=== PATIENT | female | born 1955 | race Hispanic/Latino ===

== ENCOUNTER → 2017-06-21 | Day surgery (SDC) | payer BC ==
[2017-06-20 13:05] LABS: BASOPHILS # (AUTO) 0.1 (0.0-0.1); BASOPHILS % 0.6 % (0.0-1.0); EOSINOPHILS # (AUTO) 0.1 (0.0-0.4); HEMATOCRIT 39.8 % (34.2-44.1); HEMOGLOBIN 13.5 g/dL (12.0-16.0); LYMPHOCYTES # (AUTO) 2.1 (1.0-3.2); LYMPHOCYTES % 22.1 % (18.0-39.1); MEAN CORPUSCULAR HEMOGLOBIN 31.2 pg (28-32); MEAN CORPUSCULAR HGB CONC 33.9 g/dL (31-35); MEAN CORPUSCULAR VOLUME 91.9 fL (81-99); MONOCYTES # (AUTO) 0.8 (0.2-0.8); MONOCYTES % 8.4 % (4.4-11.3); NEUTROPHILS # (AUTO) 6.4 (2.1-6.9); NEUTROPHILS % 67.3 % (38.7-80.0); PLATELET COUNT 300 x10e3/uL (140-360); RED BLOOD COUNT 4.33 x10e6/uL (3.6-5.1); RED CELL DISTRIBUTION WIDTH 12.6 % (11.7-14.4)
[2017-06-20 13:24] LABS: ALANINE AMINOTRANSFERASE 42 IU/L (0-55); ALBUMIN 3.5 g/dL (3.5-5.0); ALBUMIN/GLOBULIN RATIO 0.8 (0.8-2.0); ALKALINE PHOSPHATASE 88 IU/L (40-150); ANION GAP 12.2 mmol/L (8-16); BLOOD UREA NITROGEN 9 mg/dL (7-26); BUN/CREATININE RATIO 12 (6-25); CALCIUM 9.4 mg/dL (8.4-10.2); CARBON DIOXIDE 26 mmol/L (22-29); CHLORIDE 107 mmol/L (98-107); CREATININE, SERUM 0.76 mg/dL (0.57-1.11); EST GLOMERULAR FILTRATION RATE > 60 ML/MIN (60-); GLUCOSE 97 mg/dL (74-118); POTASSIUM 4.2 mmol/L (3.5-5.1); SODIUM 141 mmol/L (136-145)
[~2017-06-21] MED LIST: ALEVE220 M1 PO; BUPIVACAINE HCL 0.5% INJ 30 ML VIAL INJ ONE; CALCIUM 250+D1 EACH PO; CEFAZOLIN SOD 2 GM/D5W 50ML 50 ML IV ONE; DEXAMETHASONE SOD PHOS INJ 4 MG/ML VIAL ONE; EYE LUBRICANT OPTH OINT 3.5GM TUBE OP ONE; FENTANYL CITRATE/PF 100MCG/2 ML INJ ONE; GLYCOPYRROLATE INJ 1MG/ 5 ML SYR ONE; LIDOCAINE HCL 2% JELLY 5 ML TUBE ONE; LIDOCAINE HCL 2% LOCAL INJ 5 ML SDV VIAL INJ ONE; METOCLOPRAMIDE HCL 10 MG/2ML VIAL ONE; MIDAZOLAM HCL 2 MG/2 ML VIAL ONE; NEOSTIGMINE 5 MG/5ML SYR ONE; ONDANSETRON HCL INJ 2 MG/ML VIAL ONE; PROPOFOL IV EMULSION 10 MG/ML 20 ML VIAL ONE; RANITIDINE HCL150 M1 PO; ROCURONIUM BROMIDE 10 MG/ML 5ML VIAL ONE; SEVOFLURANE INHAL SOLN 250 ML PEN BTL ONE; TYLENOL PO; ZYRTEC10 M3 PO
--- NOTE | 2017-06-21 14:02 | Operative Report ---
DATE OF PROCEDURE: June 21, 2017 PREOPERATIVE DIAGNOSIS: Chronic cholecystitis and cholelithiasis. POSTOPERATIVE DIAGNOSIS: Chronic cholecystitis and cholelithiasis. PROCEDURES 1. Diagnostic laparoscopy. 2. Laparoscopic cholecystectomy. HOEING ROW BOSS: None. ANESTHESIA: General endotracheal. INDICATIONS AND FINDINGS: Patient is a 62-year-old female who has had recurrent episodes of right back pain radiating to her epigastric and right upper quadrant. Workup revealed gallstones. At surgery, the patient was found to have a gallbladder containing multiple stones with a stone impacted in the neck of the gallbladder. Cystic duct was about 3 mm in diameter. Common bile duct was about 6 mm in diameter. Liver, stomach and lower abdomen all appeared normal. TECHNIQUE: After adequate general endotracheal anesthesia with the patient in the supine position, the abdomen was prepped and draped in a sterile fashion with Guymon solution. Skin at the umbilicus was infiltrated with 0.5% Marcaine. An incision was made in the umbilicus. Abdominal wall was elevated and Veress needle was introduced. Pneumoperitoneum was then created. A 10-mm trocar and cannula was then passed through the umbilical wound. Laparoscopic camera was introduced. Initial laparoscopy revealed the gallbladder to be distended. Liver, stomach and lower abdomen all appeared normal. A 10-mm trocar and cannula was placed in the epigastrium, and two 5-mm trocars and cannulas placed in the right upper quadrant. These were placed under direct vision. Fundus of the gallbladder was grasped and retracted superiorly. There were adhesions over the neck and fundus of the gallbladder involving omentum. These were lysed staying close to the gallbladder. The gallbladder cystic duct junction was dissected free. Cystic artery was also dissected free. Cystic artery was divided between Hemoclips close to the gallbladder. Cystic duct was also divided between Hemoclips with 3 clips being left on the common bile duct side. The gallbladder was dissected free from the liver using scissors and electrocautery. Once it was entirely free, it was placed into an Endopouch and brought out through the epigastric cannula. There are multiple stones. Gallbladder bed was inspected for hemostasis, which was seen to be adequate. It was irrigated with saline. All fluid aspirated and inspected once again for hemostasis, which was seen to be adequate. Instruments and cannulas were then removed. Pneumoperitoneum was evacuated. Wounds were then closed. Fascia in the umbilical and epigastrium closed with 0 Vicryl. Skin to all wounds closed with zita. Sterile dressings applied to each wound. The patient tolerated the procedure well. Estimated blood loss was 10 mL. There were no complications. All counts were correct. Patient was taken to the recovery room in satisfactory condition. Job#: [id number] RI cc:DAVID MILLS MD
== END | disposition home or self-care (01) ==
LOC: OR 09:50
PROVIDERS: ATTEND Surgery
DX: K80.10 Calculus of gallbladder with chronic cholecystitis without obstruction (principal); K82.8 Other specified diseases of gallbladder; J44.9 Chronic obstructive pulmonary disease, unspecified; Z01.812 Encounter for preprocedural laboratory examination; Z87.891 Personal history of nicotine dependence; Z91.013 Allergy to seafood
CPT/HCPCS: 36415; 47562; 80053; 85025; 88304; J1100; J2001 ×2; J2250; J2405; J2765

== ENCOUNTER 2020-02-25 13:15 | Emergency (ER) | payer BC, MEDICARE ==
[~2020-02-25] VITALS: Ht 160 cm; Wt 90.7 kg
[~2020-02-25 13:15] MED LIST changes: -BUPIVACAINE HCL 0.5% INJ 30 ML VIAL INJ ONE; -CEFAZOLIN SOD 2 GM/D5W 50ML 50 ML IV ONE; -DEXAMETHASONE SOD PHOS INJ 4 MG/ML VIAL ONE; -EYE LUBRICANT OPTH OINT 3.5GM TUBE OP ONE; -FENTANYL CITRATE/PF 100MCG/2 ML INJ ONE; -GLYCOPYRROLATE INJ 1MG/ 5 ML SYR ONE; -LIDOCAINE HCL 2% JELLY 5 ML TUBE ONE; -LIDOCAINE HCL 2% LOCAL INJ 5 ML SDV VIAL INJ ONE; -METOCLOPRAMIDE HCL 10 MG/2ML VIAL ONE; -MIDAZOLAM HCL 2 MG/2 ML VIAL ONE; -NEOSTIGMINE 5 MG/5ML SYR ONE; -ONDANSETRON HCL INJ 2 MG/ML VIAL ONE; -PROPOFOL IV EMULSION 10 MG/ML 20 ML VIAL ONE; -ROCURONIUM BROMIDE 10 MG/ML 5ML VIAL ONE; -SEVOFLURANE INHAL SOLN 250 ML PEN BTL ONE
[2020-02-25 14:01] LABS: BASOPHILS % 0.1 % (0.0-1.0); HEMATOCRIT 39.7 % (34.2-44.1); HEMOGLOBIN 13.4 g/dL (12.0-16.0); LYMPHOCYTES # (AUTO) 0.7 (1.0-3.2); LYMPHOCYTES % 8.4 % (18.0-39.1); MEAN CORPUSCULAR HEMOGLOBIN 31.4 pg (28-32); MEAN CORPUSCULAR HGB CONC 33.8 g/dL (31-35); MONOCYTES # (AUTO) 0.2 (0.2-0.8); MONOCYTES % 1.8 % (4.4-11.3); NEUTROPHILS # (AUTO) 7.7 (2.1-6.9); NEUTROPHILS % 89.1 % (38.7-80.0); PLATELET COUNT 191 x10e3/uL (140-360); RED BLOOD COUNT 4.27 x10e6/uL (3.6-5.1); RED CELL DISTRIBUTION WIDTH 12.5 % (11.7-14.4)
[2020-02-25] MEDS ORDERED: KETOROLAC TROMETHAMINE 30 MG/ML VIAL IV STA (14:03)
[2020-02-25 14:13] LABS: ALANINE AMINOTRANSFERASE 80 IU/L (0-55); ALBUMIN 3.4 g/dL (3.5-5.0); ALBUMIN/GLOBULIN RATIO 0.9 (0.8-2.0); ALKALINE PHOSPHATASE 49 IU/L (40-150); ANION GAP 14.6 mmol/L (8-16); BLOOD UREA NITROGEN 20 mg/dL (7-26); BUN/CREATININE RATIO 24 (6-25); CALCIUM 8.1 mg/dL (8.4-10.2); CARBON DIOXIDE 25 mmol/L (22-29); CHLORIDE 103 mmol/L (98-107); CREATININE, SERUM 0.84 mg/dL (0.57-1.11); EST GLOMERULAR FILTRATION RATE > 60 ML/MIN (60-); GLUCOSE 104 mg/dL (74-118); POTASSIUM 3.6 mmol/L (3.5-5.1); SODIUM 139 mmol/L (136-145)
[2020-02-25] MEDS ORDERED: ACETAMINOPHEN 325 MG TAB PO ONE (14:15)
[2020-02-25] MEDS ORDERED: SODIUM CHLORIDE 0.9% 1000ML 1,000 ML IV SCH (14:15)
== END 2020-02-25 18:19 | disposition home or self-care (01) ==
LOC: ER 13:23
DX: U07.1 COVID-19 (principal); R50.9 Fever, unspecified; R06.02 Shortness of breath; I10 Essential (primary) hypertension; J44.9 Chronic obstructive pulmonary disease, unspecified
CPT/HCPCS: 36415; 71045; 80053; 85025; 99283; J1885; J7030

== ENCOUNTER 2020-02-28 00:30 | Inpatient (IN) | payer MEDICARE ==
[~2020-02-28] VITALS: Ht 160 cm; Wt 115.0 kg
[2020-02-28] VITALS (11 sets, daily range): BP systolic 105–136; BP diastolic 61–76
[2020-02-28] MEDS ORDERED: AZITHROMYCIN 500MG/NS 250 ML 250 ML IV STA (00:48)
[2020-02-28] MEDS ORDERED: ASPIRIN 81 MG CHEW TAB PO ONE (01:00)
[2020-02-28 01:13] LABS: BASOPHILS % 0.2 % (0.0-1.0); HEMATOCRIT 43.8 % (34.2-44.1); HEMOGLOBIN 14.7 g/dL (12.0-16.0); LYMPHOCYTES # (AUTO) 1.3 (1.0-3.2); LYMPHOCYTES % 13.8 % (18.0-39.1); MEAN CORPUSCULAR HEMOGLOBIN 31.1 pg (28-32); MEAN CORPUSCULAR HGB CONC 33.6 g/dL (31-35); MEAN CORPUSCULAR VOLUME 92.8 fL (81-99); MONOCYTES # (AUTO) 0.4 (0.2-0.8); MONOCYTES % 3.9 % (4.4-11.3); NEUTROPHILS # (AUTO) 7.4 (2.1-6.9); NEUTROPHILS % 80.6 % (38.7-80.0); PLATELET COUNT 316 x10e3/uL (140-360); RED BLOOD COUNT 4.72 x10e6/uL (3.6-5.1); RED CELL DISTRIBUTION WIDTH 12.5 % (11.7-14.4)
[2020-02-28 01:31] LABS: ALANINE AMINOTRANSFERASE 64 IU/L (0-55); ALBUMIN 3.3 g/dL (3.5-5.0); ALBUMIN/GLOBULIN RATIO 0.7 (0.8-2.0); ALKALINE PHOSPHATASE 71 IU/L (40-150); ANION GAP 18.2 mmol/L (8-16); BLOOD UREA NITROGEN 28 mg/dL (7-26); BUN/CREATININE RATIO 34 (6-25); CALCIUM 9.3 mg/dL (8.4-10.2); CARBON DIOXIDE 21 mmol/L (22-29); CHLORIDE 105 mmol/L (98-107); CREATINE KINASE 78 IU/L (29-168); CREATININE, SERUM 0.83 mg/dL (0.57-1.11); EST GLOMERULAR FILTRATION RATE > 60 ML/MIN (60-); GLUCOSE 106 mg/dL (74-118); POTASSIUM 3.2 mmol/L (3.5-5.1); SODIUM 141 mmol/L (136-145)
[2020-02-28] MEDS ORDERED: DEXAMETHASONE SOD PHOS 10 MG/1 ML VIAL IV STA (02:19)
[2020-02-28] MEDS ORDERED: BENZONATATE100 MG PO (06:56)
[2020-02-28] MEDS ORDERED: AZITHROMYCIN250 MG PO (06:57)
[2020-02-28] MEDS ORDERED: PREDNISONE20 MG PO (06:58)
[2020-02-28] MEDS ORDERED: BENICAR20 MG PO (06:59)
[2020-02-28] MEDS ORDERED: PROAIR RESPICL90 MCG (07:01)
[2020-02-28] MEDS ORDERED: ALBUTEROL SULFATE HFA 8GM INHALATION AEROSOL INH SCH (08:45)
[2020-02-28] MEDS ORDERED: GUAIFENESIN/CODEINE 10 ML CUP PO PRN (08:45)
[2020-02-28] MEDS ORDERED: SODIUM CHLORIDE 0.9% 250ML 250 ML ONE (09:43)
[2020-02-28] MEDS: ALBUTEROL SULFATE HFA 8GM INHALATION AEROSOL INH SCH ×3 (10:06→19:00)
[2020-02-28] MEDS: BENZONATATE 100 MG CAP PO SCH ×3 (10:06→20:18)
[2020-02-28] MEDS: CEFTRIAXONE SOD 1 GM 50 ML IV SCH (10:06)
[2020-02-28] MEDS: ENOXAPARIN 30 MG/0.3 ML SYR SC SCH ×2 (10:06→20:18)
[2020-02-28] MEDS: ASCORBIC ACID 500 MG TAB PO SCH ×2 (10:06→15:53)
[2020-02-28] MEDS: CHOLECALCIFEROL 1,000 UNIT TAB PO SCH (10:06)
[2020-02-28] MEDS: IPRATROPIUM BROMIDE INHALER 12.9 GM INH INH SCH ×2 (15:53→19:00)
[2020-02-28 18:10] LABS: CREATINE KINASE MB 1.9 ng/mL (0-5.0)
[2020-02-28] MEDS ORDERED: REMDESIVIR 200MG/NS 100ML 200 MG in SODIUM CHLORIDE 0.9% 100 ML 100 ML IV ONE (19:45)
[2020-02-28] MEDS ORDERED: SODIUM CHLORIDE 0.9% 500ML 500 ML IV ONE (22:15)
[2020-02-28] MEDS ORDERED: SODIUM CHLORIDE 0.9% 1000ML 1,000 ML ONE (22:58)
[2020-02-29] VITALS (10 sets, daily range): BP systolic 124–148; BP diastolic 58–89
[2020-02-29] MEDS: AZITHROMYCIN 500MG/NS 250 ML 250 ML IV SCH (00:36)
[2020-02-29 00:39] LABS: ABG HCO3 23 mmol/L (22-26); ABG PCO2 34 mmHg (35-45); ABG PH 7.45 (7.35-7.45); ABG PO2 72 mmHg (80-105); ABG TCO2 25
[2020-02-29] MEDS: ALBUTEROL SULFATE HFA 8GM INHALATION AEROSOL INH SCH ×4 (01:00→18:50)
[2020-02-29] MEDS: IPRATROPIUM BROMIDE INHALER 12.9 GM INH INH SCH ×4 (01:00→18:50)
[2020-02-29 04:19] LABS: BASOPHILS % 0.3 % (0.0-1.0); HEMATOCRIT 34.6 % (34.2-44.1); HEMOGLOBIN 11.3 g/dL (12.0-16.0); LYMPHOCYTES % 15.4 % (18.0-39.1); MEAN CORPUSCULAR HEMOGLOBIN 30.7 pg (28-32); MEAN CORPUSCULAR HGB CONC 32.7 g/dL (31-35); MONOCYTES # (AUTO) 0.4 (0.2-0.8); MONOCYTES % 6.4 % (4.4-11.3); NEUTROPHILS % 75.8 % (38.7-80.0); PLATELET COUNT 297 x10e3/uL (140-360); RED BLOOD COUNT 3.68 x10e6/uL (3.6-5.1); RED CELL DISTRIBUTION WIDTH 12.4 % (11.7-14.4)
[2020-02-29 06:32] LABS: ALANINE AMINOTRANSFERASE 57 IU/L (0-55); ALBUMIN 2.4 g/dL (3.5-5.0); ALBUMIN/GLOBULIN RATIO 0.7 (0.8-2.0); ALKALINE PHOSPHATASE 50 IU/L (40-150); ANION GAP 11.8 mmol/L (8-16); BLOOD UREA NITROGEN 20 mg/dL (7-26); BUN/CREATININE RATIO 30 (6-25); CALCIUM 7.9 mg/dL (8.4-10.2); CARBON DIOXIDE 25 mmol/L (22-29); CHLORIDE 113 mmol/L (98-107); CREATININE, SERUM 0.66 mg/dL (0.57-1.11); EST GLOMERULAR FILTRATION RATE > 60 ML/MIN (60-); GLUCOSE 102 mg/dL (74-118); POTASSIUM 3.8 mmol/L (3.5-5.1); SODIUM 146 mmol/L (136-145)
[2020-02-29] MEDS: CEFTRIAXONE SOD 1 GM 50 ML IV SCH (08:49)
[2020-02-29] MEDS: CHOLECALCIFEROL 1,000 UNIT TAB PO SCH (09:15)
[2020-02-29] MEDS: BENZONATATE 100 MG CAP PO SCH ×3 (09:15→21:21)
[2020-02-29] MEDS: ZINC SULFATE 220 MG CAP PO SCH (09:15)
[2020-02-29] MEDS: DEXAMETHASONE SOD PHOS INJ 4 MG/ML VIAL IV SCH (09:15)
[2020-02-29] MEDS: ENOXAPARIN 30 MG/0.3 ML SYR SC SCH ×2 (09:15→21:21)
[2020-02-29] MEDS: ASCORBIC ACID 500 MG TAB PO SCH ×2 (09:15→17:23)
[2020-02-29] MEDS: PIPER-TAZ 3.375 GM 50 ML IV SCH ×3 (10:08→21:36)
[2020-02-29] MEDS: REMDESIVIR 100MG/NS 100ML 100 MG in SODIUM CHLORIDE 0.9% 100 ML 100 ML IV SCH (17:23)
[2020-03-01] VITALS (8 sets, daily range): BP systolic 108–138; BP diastolic 63–76
[2020-03-01] MEDS: AZITHROMYCIN 500MG/NS 250 ML 250 ML IV SCH (00:21)
[2020-03-01] MEDS: ALBUTEROL SULFATE HFA 8GM INHALATION AEROSOL INH SCH ×4 (01:00→19:42)
[2020-03-01] MEDS: IPRATROPIUM BROMIDE INHALER 12.9 GM INH INH SCH ×5 (01:00→19:42)
[2020-03-01] MEDS: PIPER-TAZ 3.375 GM 50 ML IV SCH ×4 (04:00→21:51)
[2020-03-01] MEDS: ENOXAPARIN 30 MG/0.3 ML SYR SC SCH ×2 (08:15→21:51)
[2020-03-01] MEDS: CHOLECALCIFEROL 1,000 UNIT TAB PO SCH (08:15)
[2020-03-01] MEDS: ZINC SULFATE 220 MG CAP PO SCH (08:15)
[2020-03-01] MEDS: DEXAMETHASONE SOD PHOS INJ 4 MG/ML VIAL IV SCH (08:15)
[2020-03-01] MEDS: BENZONATATE 100 MG CAP PO SCH ×3 (08:15→21:51)
[2020-03-01] MEDS: ASCORBIC ACID 500 MG TAB PO SCH ×2 (08:15→16:00)
[2020-03-01] MEDS: REMDESIVIR 100MG/NS 100ML 100 MG in SODIUM CHLORIDE 0.9% 100 ML 100 ML IV SCH (17:20)
[2020-03-02] VITALS (7 sets, daily range): BP systolic 120–150; BP diastolic 64–83
[2020-03-02] MEDS: AZITHROMYCIN 500MG/NS 250 ML 250 ML IV SCH (00:01)
[2020-03-02] MEDS: ALBUTEROL SULFATE HFA 8GM INHALATION AEROSOL INH SCH ×4 (00:46→19:20)
[2020-03-02] MEDS: IPRATROPIUM BROMIDE INHALER 12.9 GM INH INH SCH ×4 (00:46→19:20)
[2020-03-02] MEDS: PIPER-TAZ 3.375 GM 50 ML IV SCH ×4 (04:00→21:24)
[2020-03-02 06:22] LABS: BASOPHILS % 0.2 % (0.0-1.0); EOSINOPHILS % 0.2 % (0.0-6.0); HEMATOCRIT 36.7 % (34.2-44.1); HEMOGLOBIN 12.3 g/dL (12.0-16.0); LYMPHOCYTES % 8.6 % (18.0-39.1); MEAN CORPUSCULAR HEMOGLOBIN 31.2 pg (28-32); MEAN CORPUSCULAR HGB CONC 33.5 g/dL (31-35); MEAN CORPUSCULAR VOLUME 93.1 fL (81-99); MONOCYTES # (AUTO) 0.3 (0.2-0.8); MONOCYTES % 2.4 % (4.4-11.3); NEUTROPHILS # (AUTO) 9.7 (2.1-6.9); NEUTROPHILS % 85.6 % (38.7-80.0); PLATELET COUNT 285 x10e3/uL (140-360); RED BLOOD COUNT 3.94 x10e6/uL (3.6-5.1); RED CELL DISTRIBUTION WIDTH 11.9 % (11.7-14.4)
[2020-03-02 07:10] LABS: ALANINE AMINOTRANSFERASE 62 IU/L (0-55); ALBUMIN 2.3 g/dL (3.5-5.0); ALBUMIN/GLOBULIN RATIO 0.6 (0.8-2.0); ALKALINE PHOSPHATASE 71 IU/L (40-150); ANION GAP 13.3 mmol/L (8-16); BLOOD UREA NITROGEN 15 mg/dL (7-26); BUN/CREATININE RATIO 23 (6-25); CARBON DIOXIDE 23 mmol/L (22-29); CHLORIDE 112 mmol/L (98-107); CREATININE, SERUM 0.66 mg/dL (0.57-1.11); EST GLOMERULAR FILTRATION RATE > 60 ML/MIN (60-); GLUCOSE 91 mg/dL (74-118); POTASSIUM 3.3 mmol/L (3.5-5.1); SODIUM 145 mmol/L (136-145)
[2020-03-02] MEDS: ZINC SULFATE 220 MG CAP PO SCH (08:40)
[2020-03-02] MEDS: BENZONATATE 100 MG CAP PO SCH ×3 (08:40→20:14)
[2020-03-02] MEDS: CHOLECALCIFEROL 1,000 UNIT TAB PO SCH (08:40)
[2020-03-02] MEDS: ASCORBIC ACID 500 MG TAB PO SCH ×2 (08:40→16:23)
[2020-03-02] MEDS: ENOXAPARIN 30 MG/0.3 ML SYR SC SCH ×2 (08:40→20:14)
[2020-03-02] MEDS: DEXAMETHASONE SOD PHOS INJ 4 MG/ML VIAL IV SCH (08:40)
[2020-03-02] MEDS ORDERED: ALPRAZOLAM 0.25 MG TAB PO PRN (09:15)
[2020-03-02] MEDS: ALPRAZOLAM 0.25 MG TAB PO SCH ×2 (09:46→16:23)
[2020-03-02] MEDS ORDERED: POTASSIUM CHLORIDE 10MEQ EA PO ONE (10:00)
[2020-03-02] MEDS ORDERED: PIPER-TAZ 3.375 GM 50 ML IV SCH (12:00)
[2020-03-02] MEDS: ACETAMINOPHEN 325 MG TAB PO PRN (12:43)
[2020-03-02] MEDS: REMDESIVIR 100MG/NS 100ML 100 MG in SODIUM CHLORIDE 0.9% 100 ML 100 ML IV SCH (17:09)
[2020-03-03] VITALS (9 sets, daily range): BP systolic 117–143; BP diastolic 55–76
[2020-03-03] MEDS: IPRATROPIUM BROMIDE INHALER 12.9 GM INH INH SCH ×4 (00:21→20:00)
[2020-03-03] MEDS: ALBUTEROL SULFATE HFA 8GM INHALATION AEROSOL INH SCH ×4 (00:21→20:00)
[2020-03-03] MEDS: ACETAMINOPHEN 325 MG TAB PO PRN (01:49)
[2020-03-03] MEDS: PIPER-TAZ 3.375 GM 50 ML IV SCH ×4 (03:43→22:06)
[2020-03-03 04:47] LABS: BASOPHILS % 0.2 % (0.0-1.0); EOSINOPHILS % 0.2 % (0.0-6.0); HEMATOCRIT 36.7 % (34.2-44.1); HEMOGLOBIN 12.2 g/dL (12.0-16.0); LYMPHOCYTES # (AUTO) 0.8 (1.0-3.2); LYMPHOCYTES % 6.4 % (18.0-39.1); MEAN CORPUSCULAR HEMOGLOBIN 30.7 pg (28-32); MEAN CORPUSCULAR HGB CONC 33.2 g/dL (31-35); MEAN CORPUSCULAR VOLUME 92.4 fL (81-99); MONOCYTES # (AUTO) 0.2 (0.2-0.8); MONOCYTES % 1.9 % (4.4-11.3); NEUTROPHILS # (AUTO) 11.5 (2.1-6.9); PLATELET COUNT 264 x10e3/uL (140-360); RED BLOOD COUNT 3.97 x10e6/uL (3.6-5.1); RED CELL DISTRIBUTION WIDTH 12.1 % (11.7-14.4)
[2020-03-03 05:03] LABS: ALANINE AMINOTRANSFERASE 49 IU/L (0-55); ALBUMIN 2.1 g/dL (3.5-5.0); ALBUMIN/GLOBULIN RATIO 0.6 (0.8-2.0); ALKALINE PHOSPHATASE 77 IU/L (40-150); ANION GAP 14.9 mmol/L (8-16); BLOOD UREA NITROGEN 14 mg/dL (7-26); BUN/CREATININE RATIO 23 (6-25); CALCIUM 7.8 mg/dL (8.4-10.2); CARBON DIOXIDE 21 mmol/L (22-29); CHLORIDE 111 mmol/L (98-107); CREATININE, SERUM 0.62 mg/dL (0.57-1.11); EST GLOMERULAR FILTRATION RATE > 60 ML/MIN (60-); GLUCOSE 91 mg/dL (74-118); POTASSIUM 3.9 mmol/L (3.5-5.1); SODIUM 143 mmol/L (136-145)
[2020-03-03] MEDS: ENOXAPARIN 30 MG/0.3 ML SYR SC SCH ×2 (10:33→20:20)
[2020-03-03] MEDS: DEXAMETHASONE SOD PHOS INJ 4 MG/ML VIAL IV SCH (10:33)
[2020-03-03] MEDS: CHOLECALCIFEROL 1,000 UNIT TAB PO SCH (10:33)
[2020-03-03] MEDS: ZINC SULFATE 220 MG CAP PO SCH (10:33)
[2020-03-03] MEDS: ASCORBIC ACID 500 MG TAB PO SCH ×2 (10:33→16:13)
[2020-03-03] MEDS: ALPRAZOLAM 0.25 MG TAB PO SCH ×2 (10:33→16:13)
[2020-03-03] MEDS: BENZONATATE 100 MG CAP PO SCH ×3 (10:33→20:20)
[2020-03-03] MEDS: REMDESIVIR 100MG/NS 100ML 100 MG in SODIUM CHLORIDE 0.9% 100 ML 100 ML IV SCH (17:27)
[2020-03-03] MEDS ORDERED: DEXMEDETOMIDINE 200MCG/NS 50ML 50 ML IV PRN (17:30)
[2020-03-03 17:52] LABS: ABG HCO3 22 mmol/L (22-26); ABG PCO2 29 mmHg (35-45); ABG PH 7.48 (7.35-7.45); ABG PO2 54 mmHg (80-105); ABG TCO2 22
[2020-03-04] VITALS (7 sets, daily range): BP systolic 125–143; BP diastolic 54–81
[2020-03-04] MEDS: IPRATROPIUM BROMIDE INHALER 12.9 GM INH INH SCH ×4 (01:52→19:22)
[2020-03-04] MEDS: ALBUTEROL SULFATE HFA 8GM INHALATION AEROSOL INH SCH ×4 (01:53→19:23)
[2020-03-04] MEDS: PIPER-TAZ 3.375 GM 50 ML IV SCH ×4 (04:20→21:26)
[2020-03-04] MEDS: BENZONATATE 100 MG CAP PO SCH ×3 (08:18→21:26)
[2020-03-04] MEDS: ASCORBIC ACID 500 MG TAB PO SCH ×2 (08:18→15:26)
[2020-03-04] MEDS: DEXAMETHASONE SOD PHOS INJ 4 MG/ML VIAL IV SCH (08:18)
[2020-03-04] MEDS: ENOXAPARIN 30 MG/0.3 ML SYR SC SCH ×2 (08:18→21:26)
[2020-03-04] MEDS: ALPRAZOLAM 0.25 MG TAB PO SCH ×2 (08:18→15:26)
[2020-03-04] MEDS: CHOLECALCIFEROL 1,000 UNIT TAB PO SCH (08:18)
[2020-03-04] MEDS: ZINC SULFATE 220 MG CAP PO SCH (08:18)
[2020-03-05] VITALS (8 sets, daily range): BP systolic 120–153; BP diastolic 53–75
[2020-03-05] MEDS: IPRATROPIUM BROMIDE INHALER 12.9 GM INH INH SCH ×4 (00:51→19:00)
[2020-03-05] MEDS: ALBUTEROL SULFATE HFA 8GM INHALATION AEROSOL INH SCH ×4 (00:52→19:00)
[2020-03-05] MEDS: PIPER-TAZ 3.375 GM 50 ML IV SCH ×4 (04:36→20:44)
[2020-03-05] MEDS: ENOXAPARIN 30 MG/0.3 ML SYR SC SCH ×2 (08:24→20:44)
[2020-03-05] MEDS: ZINC SULFATE 220 MG CAP PO SCH (08:24)
[2020-03-05] MEDS: CHOLECALCIFEROL 1,000 UNIT TAB PO SCH (08:24)
[2020-03-05] MEDS: ASCORBIC ACID 500 MG TAB PO SCH ×2 (08:24→16:43)
[2020-03-05] MEDS: BENZONATATE 100 MG CAP PO SCH ×3 (08:24→20:44)
[2020-03-05] MEDS: DEXAMETHASONE SOD PHOS INJ 4 MG/ML VIAL IV SCH (08:24)
[2020-03-05] MEDS: ALPRAZOLAM 0.25 MG TAB PO SCH ×2 (08:24→16:43)
[2020-03-06] VITALS (8 sets, daily range): BP systolic 113–136; BP diastolic 54–66
[2020-03-06] MEDS: IPRATROPIUM BROMIDE INHALER 12.9 GM INH INH SCH ×4 (01:00→19:00)
[2020-03-06] MEDS: ALBUTEROL SULFATE HFA 8GM INHALATION AEROSOL INH SCH ×4 (01:00→19:00)
[2020-03-06] MEDS: PIPER-TAZ 3.375 GM 50 ML IV SCH ×2 (03:34→11:06)
[2020-03-06 04:48] LABS: BASOPHILS % 0.1 % (0.0-1.0); EOSINOPHILS % 0.3 % (0.0-6.0); HEMATOCRIT 37.4 % (34.2-44.1); HEMOGLOBIN 12.4 g/dL (12.0-16.0); LYMPHOCYTES # (AUTO) 0.8 (1.0-3.2); LYMPHOCYTES % 5.4 % (18.0-39.1); MEAN CORPUSCULAR HEMOGLOBIN 30.5 pg (28-32); MEAN CORPUSCULAR HGB CONC 33.2 g/dL (31-35); MEAN CORPUSCULAR VOLUME 92.1 fL (81-99); MONOCYTES # (AUTO) 0.3 (0.2-0.8); NEUTROPHILS % 91.4 % (38.7-80.0); PLATELET COUNT 288 x10e3/uL (140-360); RED BLOOD COUNT 4.06 x10e6/uL (3.6-5.1); RED CELL DISTRIBUTION WIDTH 11.9 % (11.7-14.4)
[2020-03-06 05:10] LABS: BLOOD UREA NITROGEN 18 mg/dL (7-26); BUN/CREATININE RATIO 32 (6-25); CALCIUM 7.7 mg/dL (8.4-10.2); CARBON DIOXIDE 24 mmol/L (22-29); CHLORIDE 107 mmol/L (98-107); CREATININE, SERUM 0.56 mg/dL (0.57-1.11); EST GLOMERULAR FILTRATION RATE > 60 ML/MIN (60-); GLUCOSE 82 mg/dL (74-118); SODIUM 141 mmol/L (136-145)
[2020-03-06] MEDS: DEXAMETHASONE SOD PHOS INJ 4 MG/ML VIAL IV SCH (11:05)
[2020-03-06] MEDS: ZINC SULFATE 220 MG CAP PO SCH (11:05)
[2020-03-06] MEDS: CHOLECALCIFEROL 1,000 UNIT TAB PO SCH (11:05)
[2020-03-06] MEDS: BENZONATATE 100 MG CAP PO SCH ×3 (11:05→21:46)
[2020-03-06] MEDS: ALPRAZOLAM 0.25 MG TAB PO SCH ×2 (11:05→16:59)
[2020-03-06] MEDS: ASCORBIC ACID 500 MG TAB PO SCH ×2 (11:05→16:59)
[2020-03-06] MEDS: ENOXAPARIN SOD INJ 40 MG/0.4 ML SYR SC SCH (21:46)
[2020-03-07] VITALS (8 sets, daily range): BP systolic 108–153; BP diastolic 54–75
[2020-03-07] MEDS: ALBUTEROL SULFATE HFA 8GM INHALATION AEROSOL INH SCH ×4 (01:00→19:10)
[2020-03-07] MEDS: IPRATROPIUM BROMIDE INHALER 12.9 GM INH INH SCH ×4 (01:00→19:09)
[2020-03-07] MEDS: ZINC SULFATE 220 MG CAP PO SCH (09:00)
[2020-03-07] MEDS: ASCORBIC ACID 500 MG TAB PO SCH ×2 (09:00→16:06)
[2020-03-07] MEDS: ALPRAZOLAM 0.25 MG TAB PO SCH ×2 (09:00→16:06)
[2020-03-07] MEDS: DEXAMETHASONE SOD PHOS INJ 4 MG/ML VIAL IV SCH (09:00)
[2020-03-07] MEDS: CHOLECALCIFEROL 1,000 UNIT TAB PO SCH (09:00)
[2020-03-07] MEDS: BENZONATATE 100 MG CAP PO SCH ×3 (09:00→20:28)
[2020-03-07] MEDS: ENOXAPARIN SOD INJ 40 MG/0.4 ML SYR SC SCH ×2 (09:00→20:28)
[2020-03-07] MEDS ORDERED: FUROSEMIDE INJ 10 MG/ML 4 ML VIAL IV ONE (13:15)
[2020-03-08] VITALS (8 sets, daily range): BP systolic 102–127; BP diastolic 51–68
[2020-03-08 05:13] LABS: BASOPHILS % 0.1 % (0.0-1.0); EOSINOPHILS % 0.2 % (0.0-6.0); HEMATOCRIT 39.1 % (34.2-44.1); LYMPHOCYTES # (AUTO) 0.9 (1.0-3.2); LYMPHOCYTES % 6.6 % (18.0-39.1); MEAN CORPUSCULAR HEMOGLOBIN 30.7 pg (28-32); MEAN CORPUSCULAR HGB CONC 33.2 g/dL (31-35); MEAN CORPUSCULAR VOLUME 92.4 fL (81-99); MONOCYTES # (AUTO) 0.3 (0.2-0.8); MONOCYTES % 2.4 % (4.4-11.3); NEUTROPHILS # (AUTO) 12.7 (2.1-6.9); NEUTROPHILS % 89.8 % (38.7-80.0); PLATELET COUNT 260 x10e3/uL (140-360); RED BLOOD COUNT 4.23 x10e6/uL (3.6-5.1)
[2020-03-08 05:29] LABS: BLOOD UREA NITROGEN 22 mg/dL (7-26); BUN/CREATININE RATIO 39 (6-25); CALCIUM 8.4 mg/dL (8.4-10.2); CARBON DIOXIDE 28 mmol/L (22-29); CHLORIDE 104 mmol/L (98-107); CREATININE, SERUM 0.57 mg/dL (0.57-1.11); EST GLOMERULAR FILTRATION RATE > 60 ML/MIN (60-); GLUCOSE 119 mg/dL (74-118); SODIUM 143 mmol/L (136-145)
[2020-03-08] MEDS: IPRATROPIUM BROMIDE INHALER 12.9 GM INH INH SCH ×4 (06:44→18:59)
[2020-03-08] MEDS: ALBUTEROL SULFATE HFA 8GM INHALATION AEROSOL INH SCH ×4 (06:44→18:59)
[2020-03-08] MEDS: ENOXAPARIN SOD INJ 40 MG/0.4 ML SYR SC SCH ×2 (08:50→20:41)
[2020-03-08] MEDS: ZINC SULFATE 220 MG CAP PO SCH (08:50)
[2020-03-08] MEDS: ALPRAZOLAM 0.25 MG TAB PO SCH ×2 (08:50→17:29)
[2020-03-08] MEDS: BENZONATATE 100 MG CAP PO SCH ×3 (08:50→20:51)
[2020-03-08] MEDS: ASCORBIC ACID 500 MG TAB PO SCH ×2 (08:50→17:29)
[2020-03-08] MEDS: CHOLECALCIFEROL 1,000 UNIT TAB PO SCH (08:50)
[2020-03-08] MEDS: DEXAMETHASONE SOD PHOS INJ 4 MG/ML VIAL IV SCH (08:50)
[2020-03-09] VITALS (7 sets, daily range): BP systolic 102–140; BP diastolic 52–74
[2020-03-09] MEDS: ALBUTEROL SULFATE HFA 8GM INHALATION AEROSOL INH SCH ×4 (00:04→18:46)
[2020-03-09] MEDS: IPRATROPIUM BROMIDE INHALER 12.9 GM INH INH SCH ×4 (00:04→18:46)
[2020-03-09] MEDS: ALPRAZOLAM 0.25 MG TAB PO SCH (08:53)
[2020-03-09] MEDS: ASCORBIC ACID 500 MG TAB PO SCH ×2 (08:53→16:33)
[2020-03-09] MEDS: CHOLECALCIFEROL 1,000 UNIT TAB PO SCH (08:53)
[2020-03-09] MEDS: ZINC SULFATE 220 MG CAP PO SCH (08:53)
[2020-03-09] MEDS: DEXAMETHASONE SOD PHOS INJ 4 MG/ML VIAL IV SCH (08:53)
[2020-03-09] MEDS: BENZONATATE 100 MG CAP PO SCH ×3 (08:53→20:55)
[2020-03-09] MEDS: ENOXAPARIN SOD INJ 40 MG/0.4 ML SYR SC SCH ×2 (08:54→20:55)
[2020-03-09] MEDS: ACETAMINOPHEN 325 MG TAB PO PRN ×2 (13:57→20:56)
[2020-03-09] MEDS: ALPRAZOLAM 0.25 MG TAB PO PRN (20:56)
[2020-03-10] VITALS (8 sets, daily range): BP systolic 108–131; BP diastolic 57–65
[2020-03-10] MEDS: IPRATROPIUM BROMIDE INHALER 12.9 GM INH INH SCH ×4 (00:52→19:50)
[2020-03-10] MEDS: ALBUTEROL SULFATE HFA 8GM INHALATION AEROSOL INH SCH ×4 (00:52→19:50)
[2020-03-10] MEDS: ACETAMINOPHEN 325 MG TAB PO PRN ×3 (02:56→21:42)
[2020-03-10 05:21] LABS: BASOPHILS % 0.2 % (0.0-1.0); EOSINOPHILS # (AUTO) 0.1 (0.0-0.4); EOSINOPHILS % 0.8 % (0.0-6.0); HEMATOCRIT 40.2 % (34.2-44.1); HEMOGLOBIN 13.1 g/dL (12.0-16.0); LYMPHOCYTES % 7.2 % (18.0-39.1); MEAN CORPUSCULAR HEMOGLOBIN 30.5 pg (28-32); MEAN CORPUSCULAR HGB CONC 32.6 g/dL (31-35); MEAN CORPUSCULAR VOLUME 93.5 fL (81-99); MONOCYTES # (AUTO) 0.4 (0.2-0.8); MONOCYTES % 2.8 % (4.4-11.3); NEUTROPHILS # (AUTO) 12.7 (2.1-6.9); PLATELET COUNT 257 x10e3/uL (140-360); RED CELL DISTRIBUTION WIDTH 12.3 % (11.7-14.4)
[2020-03-10 05:56] LABS: ANION GAP 15.2 mmol/L (8-16); BLOOD UREA NITROGEN 17 mg/dL (7-26); BUN/CREATININE RATIO 31 (6-25); CALCIUM 8.3 mg/dL (8.4-10.2); CARBON DIOXIDE 27 mmol/L (22-29); CHLORIDE 104 mmol/L (98-107); CREATININE, SERUM 0.54 mg/dL (0.57-1.11); EST GLOMERULAR FILTRATION RATE > 60 ML/MIN (60-); GLUCOSE 98 mg/dL (74-118); POTASSIUM 4.2 mmol/L (3.5-5.1); SODIUM 142 mmol/L (136-145)
[2020-03-10] MEDS: CHOLECALCIFEROL 1,000 UNIT TAB PO SCH (08:49)
[2020-03-10] MEDS: ALPRAZOLAM 0.25 MG TAB PO SCH ×2 (08:49→17:01)
[2020-03-10] MEDS: ASCORBIC ACID 500 MG TAB PO SCH ×2 (08:49→17:01)
[2020-03-10] MEDS: BENZONATATE 100 MG CAP PO SCH ×3 (08:49→21:41)
[2020-03-10] MEDS: ENOXAPARIN SOD INJ 40 MG/0.4 ML SYR SC SCH ×2 (08:50→21:42)
[2020-03-10] MEDS: ZINC SULFATE 220 MG CAP PO SCH (08:50)
[2020-03-10] MEDS: ALPRAZOLAM 0.25 MG TAB PO PRN (13:21)
[2020-03-11] VITALS (7 sets, daily range): BP systolic 95–144; BP diastolic 33–81
[2020-03-11] MEDS: IPRATROPIUM BROMIDE INHALER 12.9 GM INH INH SCH ×4 (01:23→19:42)
[2020-03-11] MEDS: ALBUTEROL SULFATE HFA 8GM INHALATION AEROSOL INH SCH ×4 (01:24→19:42)
[2020-03-11] MEDS: BENZONATATE 100 MG CAP PO SCH ×3 (08:52→21:07)
[2020-03-11] MEDS: ALPRAZOLAM 0.25 MG TAB PO SCH ×2 (08:52→17:35)
[2020-03-11] MEDS: ASCORBIC ACID 500 MG TAB PO SCH ×2 (08:52→17:35)
[2020-03-11] MEDS: CHOLECALCIFEROL 1,000 UNIT TAB PO SCH (08:52)
[2020-03-11] MEDS: ZINC SULFATE 220 MG CAP PO SCH (08:53)
[2020-03-11] MEDS: ENOXAPARIN SOD INJ 40 MG/0.4 ML SYR SC SCH ×2 (08:53→21:07)
[2020-03-11] MEDS: ACETAMINOPHEN 325 MG TAB PO PRN (22:59)
[2020-03-12] VITALS (7 sets, daily range): BP systolic 104–142; BP diastolic 46–76
[2020-03-12] MEDS: IPRATROPIUM BROMIDE INHALER 12.9 GM INH INH SCH ×4 (01:00→19:03)
[2020-03-12] MEDS: ALBUTEROL SULFATE HFA 8GM INHALATION AEROSOL INH SCH ×4 (01:00→19:03)
[2020-03-12] MEDS: ZINC SULFATE 220 MG CAP PO SCH (09:09)
[2020-03-12] MEDS: ENOXAPARIN SOD INJ 40 MG/0.4 ML SYR SC SCH ×2 (09:09→21:00)
[2020-03-12] MEDS: ASCORBIC ACID 500 MG TAB PO SCH ×2 (09:09→17:33)
[2020-03-12] MEDS: CHOLECALCIFEROL 1,000 UNIT TAB PO SCH (09:09)
[2020-03-12] MEDS: ALPRAZOLAM 0.25 MG TAB PO SCH ×2 (09:09→17:33)
[2020-03-12] MEDS: BENZONATATE 100 MG CAP PO SCH ×3 (09:09→21:00)
[2020-03-12] MEDS: DEXAMETHASONE 4 MG TAB PO SCH (11:44)
[2020-03-12] MEDS: ACETAMINOPHEN 325 MG TAB PO PRN (16:15)
[2020-03-13] VITALS (15 sets, daily range): BP systolic 80–129; BP diastolic 53–84
[2020-03-13] MEDS: MIDAZOLAM HCL 50 MG in SODIUM CHLORIDE 0.9% 100 ML 90 ML IV PRN ×2 (00:30→05:51)
[2020-03-13] MEDS: FENTANYL CITRATE INJ 2,000 MCG in SODIUM CHLORIDE 0.9% 250ML 210 ML IV PRN ×2 (00:30→04:00)
[2020-03-13] MEDS ORDERED: MIDAZOLAM HCL 5MG/ML 10ML VIAL 100 ML IV ONE ×2 (00:31→05:56)
[2020-03-13] MEDS ORDERED: FENTANYL 2000MCG/NS 250 250 ML ONE (00:44)
[2020-03-13] MEDS: ALBUTEROL SULFATE HFA 8GM INHALATION AEROSOL INH SCH ×4 (01:00→19:00)
[2020-03-13] MEDS: IPRATROPIUM BROMIDE INHALER 12.9 GM INH INH SCH ×4 (01:00→19:00)
[2020-03-13 02:37] LABS: BASOPHILS % 0.1 % (0.0-1.0); HEMOGLOBIN 12.2 g/dL (12.0-16.0); LYMPHOCYTES # (AUTO) 0.3 (1.0-3.2); LYMPHOCYTES % 2.2 % (18.0-39.1); MEAN CORPUSCULAR HEMOGLOBIN 30.3 pg (28-32); MEAN CORPUSCULAR HGB CONC 31.3 g/dL (31-35); MONOCYTES # (AUTO) 0.3 (0.2-0.8); MONOCYTES % 2.5 % (4.4-11.3); NEUTROPHILS # (AUTO) 12.6 (2.1-6.9); NEUTROPHILS % 93.1 % (38.7-80.0); PLATELET COUNT 227 x10e3/uL (140-360); RED BLOOD COUNT 4.02 x10e6/uL (3.6-5.1); RED CELL DISTRIBUTION WIDTH 12.4 % (11.7-14.4)
[2020-03-13 02:56] LABS: ALANINE AMINOTRANSFERASE 118 IU/L (0-55); ALBUMIN 1.6 g/dL (3.5-5.0); ALBUMIN/GLOBULIN RATIO 0.3 (0.8-2.0); ALKALINE PHOSPHATASE 109 IU/L (40-150); ANION GAP 16.1 mmol/L (8-16); BLOOD UREA NITROGEN 23 mg/dL (7-26); BUN/CREATININE RATIO 38 (6-25); CALCIUM 7.6 mg/dL (8.4-10.2); CARBON DIOXIDE 25 mmol/L (22-29); CHLORIDE 105 mmol/L (98-107); CREATINE KINASE 23 IU/L (29-168); EST GLOMERULAR FILTRATION RATE > 60 ML/MIN (60-); GLUCOSE 173 mg/dL (74-118); POTASSIUM 4.1 mmol/L (3.5-5.1); SODIUM 142 mmol/L (136-145)
[2020-03-13] MEDS: ROCURONIUM BROMIDE 1,250 MG in SODIUM CHLORIDE 0.9% 250ML 125 ML IV PRN (03:30)
[2020-03-13] MEDS ORDERED: ROCURONIUM BROMIDE 250 ML IV ONE (03:34)
[2020-03-13 04:03] LABS: ABG PCO2 77 mmHg (35-45); ABG PH 7.22 (7.35-7.45)
[2020-03-13 04:04] LABS: ABG HCO3 32 mmol/L (22-26); ABG PO2 75 mmHg (80-105); ABG TCO2 35
[2020-03-13 08:55] LABS: BASOPHILS % 0.1 % (0.0-1.0); HEMATOCRIT 36.2 % (34.2-44.1); HEMOGLOBIN 11.5 g/dL (12.0-16.0); LYMPHOCYTES # (AUTO) 0.7 (1.0-3.2); LYMPHOCYTES % 5.1 % (18.0-39.1); MEAN CORPUSCULAR HEMOGLOBIN 31.1 pg (28-32); MEAN CORPUSCULAR HGB CONC 31.8 g/dL (31-35); MEAN CORPUSCULAR VOLUME 97.8 fL (81-99); MONOCYTES # (AUTO) 0.6 (0.2-0.8); MONOCYTES % 4.4 % (4.4-11.3); NEUTROPHILS % 88.8 % (38.7-80.0); PLATELET COUNT 243 x10e3/uL (140-360); RED CELL DISTRIBUTION WIDTH 12.3 % (11.7-14.4)
[2020-03-13] MEDS: BENZONATATE 100 MG CAP PO SCH ×3 (09:00→19:02)
[2020-03-13] MEDS: ALPRAZOLAM 0.25 MG TAB PO SCH ×2 (09:00→17:00)
[2020-03-13 09:14] LABS: ALANINE AMINOTRANSFERASE 103 IU/L (0-55); ALBUMIN 1.6 g/dL (3.5-5.0); ALBUMIN/GLOBULIN RATIO 0.4 (0.8-2.0); ALKALINE PHOSPHATASE 96 IU/L (40-150); ANION GAP 12.6 mmol/L (8-16); BLOOD UREA NITROGEN 24 mg/dL (7-26); BUN/CREATININE RATIO 46 (6-25); CALCIUM 7.6 mg/dL (8.4-10.2); CARBON DIOXIDE 26 mmol/L (22-29); CHLORIDE 107 mmol/L (98-107); CREATININE, SERUM 0.52 mg/dL (0.57-1.11); EST GLOMERULAR FILTRATION RATE > 60 ML/MIN (60-); GLUCOSE 109 mg/dL (74-118); POTASSIUM 4.6 mmol/L (3.5-5.1); SODIUM 141 mmol/L (136-145)
[2020-03-13] MEDS: MIDAZOLAM HCL 5MG/ML 10ML VIAL 100 ML IV PRN (10:27)
[2020-03-13] MEDS: DEXAMETHASONE 4 MG TAB PO SCH (10:57)
[2020-03-13] MEDS: ZINC SULFATE 220 MG CAP PO SCH (10:57)
[2020-03-13] MEDS: CHOLECALCIFEROL 1,000 UNIT TAB PO SCH (10:57)
[2020-03-13] MEDS: ENOXAPARIN SOD INJ 40 MG/0.4 ML SYR SC SCH (10:57)
[2020-03-13] MEDS: ASCORBIC ACID 500 MG TAB PO SCH ×2 (10:57→17:00)
[2020-03-13] MEDS ORDERED: PANTOPRAZOLE 40 MG 10ML VIAL IV ONE (11:00)
[2020-03-13 19:37] LABS: ABG PCO2 82 mmHg (35-45); ABG PH 7.24 (7.35-7.45)
[2020-03-13 19:38] LABS: ABG HCO3 36 mmol/L (22-26); ABG PO2 161 mmHg (80-105); ABG TCO2 38
[2020-03-14] VITALS (23 sets, daily range): BP systolic 90–115; BP diastolic 27–71
[2020-03-14] MEDS: IPRATROPIUM BROMIDE INHALER 12.9 GM INH INH SCH ×4 (01:00→19:00)
[2020-03-14] MEDS: ALBUTEROL SULFATE HFA 8GM INHALATION AEROSOL INH SCH ×4 (01:00→19:00)
[2020-03-14] MEDS: MIDAZOLAM HCL 5MG/ML 10ML VIAL 100 ML IV PRN ×4 (01:56→22:13)
[2020-03-14 05:28] LABS: BASOPHILS % 0.2 % (0.0-1.0); EOSINOPHILS # (AUTO) 0.1 (0.0-0.4); EOSINOPHILS % 0.7 % (0.0-6.0); HEMATOCRIT 41.9 % (34.2-44.1); HEMOGLOBIN 12.8 g/dL (12.0-16.0); LYMPHOCYTES # (AUTO) 0.7 (1.0-3.2); LYMPHOCYTES % 4.2 % (18.0-39.1); MEAN CORPUSCULAR HEMOGLOBIN 30.6 pg (28-32); MEAN CORPUSCULAR HGB CONC 30.5 g/dL (31-35); MEAN CORPUSCULAR VOLUME 100.2 fL (81-99); MONOCYTES # (AUTO) 0.9 (0.2-0.8); MONOCYTES % 5.4 % (4.4-11.3); NEUTROPHILS # (AUTO) 14.6 (2.1-6.9); NEUTROPHILS % 88.2 % (38.7-80.0); PLATELET COUNT 282 x10e3/uL (140-360); RED BLOOD COUNT 4.18 x10e6/uL (3.6-5.1); RED CELL DISTRIBUTION WIDTH 12.4 % (11.7-14.4)
[2020-03-14 05:47] LABS: ALANINE AMINOTRANSFERASE 87 IU/L (0-55); ALBUMIN 1.8 g/dL (3.5-5.0); ALBUMIN/GLOBULIN RATIO 0.4 (0.8-2.0); ALKALINE PHOSPHATASE 114 IU/L (40-150); ANION GAP 14.2 mmol/L (8-16); BLOOD UREA NITROGEN 24 mg/dL (7-26); BUN/CREATININE RATIO 38 (6-25); CALCIUM 8.1 mg/dL (8.4-10.2); CARBON DIOXIDE 30 mmol/L (22-29); CHLORIDE 104 mmol/L (98-107); CREATININE, SERUM 0.63 mg/dL (0.57-1.11); EST GLOMERULAR FILTRATION RATE > 60 ML/MIN (60-); GLUCOSE 96 mg/dL (74-118); POTASSIUM 5.2 mmol/L (3.5-5.1); SODIUM 143 mmol/L (136-145)
[2020-03-14] MEDS: FENTANYL 2000MCG/NS 250 250 ML IV PRN ×2 (06:00→15:54)
[2020-03-14] MEDS: ZINC SULFATE 220 MG CAP PO SCH (09:00)
[2020-03-14] MEDS: CHOLECALCIFEROL 1,000 UNIT TAB PO SCH (09:00)
[2020-03-14] MEDS: ALPRAZOLAM 0.25 MG TAB PO SCH ×2 (09:00→17:00)
[2020-03-14] MEDS: ASCORBIC ACID 500 MG TAB PO SCH ×2 (09:00→17:00)
[2020-03-14] MEDS ORDERED: SOD POLYSTYRENE SULFONATE SUSP 15 GM/60 ML BTL NG PRN (10:45)
[2020-03-14] MEDS: PIPER-TAZ 3.375 GM 50 ML IV SCH ×2 (14:00→18:49)
[2020-03-14] MEDS: PANTOPRAZOLE 40 MG 10ML VIAL IV SCH (14:00)
[2020-03-14 17:01] LABS: ANION GAP 15.5 mmol/L (8-16); BLOOD UREA NITROGEN 28 mg/dL (7-26); BUN/CREATININE RATIO 40 (6-25); CARBON DIOXIDE 27 mmol/L (22-29); CHLORIDE 107 mmol/L (98-107); EST GLOMERULAR FILTRATION RATE > 60 ML/MIN (60-); GLUCOSE 119 mg/dL (74-118); SODIUM 144 mmol/L (136-145)
[2020-03-14 17:03] LABS: POTASSIUM 5.5 mmol/L (3.5-5.1)
[2020-03-14 17:33] LABS: ABG HCO3 34 mmol/L (22-26); ABG PCO2 76 mmHg (35-45); ABG PH 7.26 (7.35-7.45); ABG PO2 117 mmHg (80-105); ABG TCO2 37
[2020-03-14] MEDS ORDERED: DEXTROSE 50% SYRINGE 50 ML IV ONE (18:45)
[2020-03-14] MEDS ORDERED: INSULIN REGULAR, HUMAN 100 UNIT/1 ML 3ML VIAL IV ONE (18:45)
[2020-03-14] MEDS ORDERED: CALCIUM GLUCONATE 10% INJ 4.65 MEQ in SODIUM CHLORIDE 0.9% 50ML 50 ML IV ONE (18:45)
[2020-03-14] MEDS ORDERED: SODIUM CHLORIDE 0.9% 1000ML 1,000 ML IV SCH (20:30)
[2020-03-14] MEDS: SODIUM CHLORIDE 0.9% 1000ML 1,000 ML IV SCH ×3 (20:45→21:15)
[2020-03-14 21:29] LABS: BLOOD UREA NITROGEN 32 mg/dL (7-26); BUN/CREATININE RATIO 41 (6-25); CALCIUM 7.9 mg/dL (8.4-10.2); CARBON DIOXIDE 29 mmol/L (22-29); CHLORIDE 106 mmol/L (98-107); CREATININE, SERUM 0.79 mg/dL (0.57-1.11); EST GLOMERULAR FILTRATION RATE > 60 ML/MIN (60-); GLUCOSE 133 mg/dL (74-118); SODIUM 142 mmol/L (136-145)
[2020-03-15] VITALS (24 sets, daily range): BP systolic 100–124; BP diastolic 48–61
[2020-03-15] MEDS: PIPER-TAZ 3.375 GM 50 ML IV SCH ×5 (00:35→23:38)
[2020-03-15] MEDS: IPRATROPIUM BROMIDE INHALER 12.9 GM INH INH SCH ×4 (01:00→21:09)
[2020-03-15] MEDS: ALBUTEROL SULFATE HFA 8GM INHALATION AEROSOL INH SCH ×4 (01:00→18:30)
[2020-03-15] MEDS: FENTANYL 2000MCG/NS 250 250 ML IV PRN ×3 (03:45→22:48)
[2020-03-15] MEDS: MIDAZOLAM HCL 5MG/ML 10ML VIAL 100 ML IV PRN ×4 (03:50→19:58)
[2020-03-15 06:19] LABS: BASOPHILS # (AUTO) 0.1 (0.0-0.1); BASOPHILS % 0.3 % (0.0-1.0); EOSINOPHILS % 0.1 % (0.0-6.0); HEMATOCRIT 36.7 % (34.2-44.1); LYMPHOCYTES # (AUTO) 0.5 (1.0-3.2); LYMPHOCYTES % 3.2 % (18.0-39.1); MEAN CORPUSCULAR HEMOGLOBIN 31.2 pg (28-32); MONOCYTES # (AUTO) 0.8 (0.2-0.8); MONOCYTES % 5.1 % (4.4-11.3); NEUTROPHILS # (AUTO) 13.7 (2.1-6.9); NEUTROPHILS % 89.8 % (38.7-80.0); PLATELET COUNT 252 x10e3/uL (140-360); RED BLOOD COUNT 3.53 x10e6/uL (3.6-5.1); RED CELL DISTRIBUTION WIDTH 12.8 % (11.7-14.4)
[2020-03-15] MEDS: SODIUM CHLORIDE 0.9% 1000ML 1,000 ML IV SCH ×2 (06:30→17:15)
[2020-03-15 07:00] LABS: ALANINE AMINOTRANSFERASE 142 IU/L (0-55); ALBUMIN 1.6 g/dL (3.5-5.0); ALBUMIN/GLOBULIN RATIO 0.4 (0.8-2.0); ALKALINE PHOSPHATASE 126 IU/L (40-150); ANION GAP 12.8 mmol/L (8-16); BLOOD UREA NITROGEN 27 mg/dL (7-26); BUN/CREATININE RATIO 40 (6-25); CALCIUM 7.6 mg/dL (8.4-10.2); CARBON DIOXIDE 27 mmol/L (22-29); CHLORIDE 109 mmol/L (98-107); CREATININE, SERUM 0.68 mg/dL (0.57-1.11); EST GLOMERULAR FILTRATION RATE > 60 ML/MIN (60-); GLUCOSE 117 mg/dL (74-118); POTASSIUM 4.8 mmol/L (3.5-5.1); SODIUM 144 mmol/L (136-145)
[2020-03-15] MEDS: ALPRAZOLAM 0.25 MG TAB PO SCH ×2 (08:06→17:00)
[2020-03-15] MEDS: ASCORBIC ACID 500 MG TAB PO SCH ×3 (09:00→17:00)
[2020-03-15] MEDS: ZINC SULFATE 220 MG CAP PO SCH ×2 (09:00→09:58)
[2020-03-15] MEDS: CHOLECALCIFEROL 1,000 UNIT TAB PO SCH ×2 (09:00→09:58)
[2020-03-15] MEDS: PANTOPRAZOLE 40 MG 10ML VIAL IV SCH (09:58)
[2020-03-15] MEDS: ROCURONIUM BROMIDE 1,250 MG in SODIUM CHLORIDE 0.9% 250ML 125 ML IV PRN (13:21)
[2020-03-15] MEDS: ENOXAPARIN SOD INJ 40 MG/0.4 ML SYR SC SCH (19:38)
[2020-03-16] VITALS (23 sets, daily range): BP systolic 102–130; BP diastolic 47–63
[2020-03-16] MEDS: MIDAZOLAM HCL 5MG/ML 10ML VIAL 100 ML IV PRN ×2 (01:14→22:11)
[2020-03-16] MEDS: SODIUM CHLORIDE 0.9% 1000ML 1,000 ML IV SCH ×2 (01:49→11:21)
[2020-03-16] MEDS: ALBUTEROL SULFATE HFA 8GM INHALATION AEROSOL INH SCH ×4 (02:10→19:40)
[2020-03-16] MEDS: IPRATROPIUM BROMIDE INHALER 12.9 GM INH INH SCH ×4 (02:10→19:00)
[2020-03-16 05:07] LABS: BASOPHILS # (AUTO) 0.1 (0.0-0.1); BASOPHILS % 0.4 % (0.0-1.0); EOSINOPHILS # (AUTO) 0.1 (0.0-0.4); EOSINOPHILS % 0.8 % (0.0-6.0); HEMATOCRIT 33.5 % (34.2-44.1); HEMOGLOBIN 9.9 g/dL (12.0-16.0); LYMPHOCYTES # (AUTO) 0.5 (1.0-3.2); MEAN CORPUSCULAR HEMOGLOBIN 30.8 pg (28-32); MEAN CORPUSCULAR HGB CONC 29.6 g/dL (31-35); MEAN CORPUSCULAR VOLUME 104.4 fL (81-99); MONOCYTES # (AUTO) 0.6 (0.2-0.8); MONOCYTES % 4.6 % (4.4-11.3); NEUTROPHILS # (AUTO) 11.2 (2.1-6.9); NEUTROPHILS % 88.7 % (38.7-80.0); PLATELET COUNT 266 x10e3/uL (140-360); RED BLOOD COUNT 3.21 x10e6/uL (3.6-5.1); RED CELL DISTRIBUTION WIDTH 12.8 % (11.7-14.4)
[2020-03-16 05:17] LABS: ALANINE AMINOTRANSFERASE 146 IU/L (0-55); ALBUMIN 1.6 g/dL (3.5-5.0); ALBUMIN/GLOBULIN RATIO 0.4 (0.8-2.0); ALKALINE PHOSPHATASE 118 IU/L (40-150); ANION GAP 10.8 mmol/L (8-16); BLOOD UREA NITROGEN 26 mg/dL (7-26); BUN/CREATININE RATIO 41 (6-25); CALCIUM 7.9 mg/dL (8.4-10.2); CARBON DIOXIDE 31 mmol/L (22-29); CHLORIDE 111 mmol/L (98-107); CREATININE, SERUM 0.64 mg/dL (0.57-1.11); EST GLOMERULAR FILTRATION RATE > 60 ML/MIN (60-); GLUCOSE 126 mg/dL (74-118); MAGNESIUM 2.2 MG/DL (1.3-2.1); PHOSPHORUS 2.2 MG/DL (2.3-4.7); POTASSIUM 4.8 mmol/L (3.5-5.1); SODIUM 148 mmol/L (136-145)
[2020-03-16] MEDS: PIPER-TAZ 3.375 GM 50 ML IV SCH ×4 (06:46→23:23)
[2020-03-16] MEDS: ALPRAZOLAM 0.25 MG TAB PO SCH ×2 (09:00→17:00)
[2020-03-16] MEDS: ASCORBIC ACID 500 MG TAB PO SCH ×2 (09:06→17:37)
[2020-03-16] MEDS: PANTOPRAZOLE 40 MG 10ML VIAL IV SCH (09:06)
[2020-03-16] MEDS: CHOLECALCIFEROL 1,000 UNIT TAB PO SCH (09:06)
[2020-03-16] MEDS: ZINC SULFATE 220 MG CAP PO SCH (09:07)
[2020-03-16 13:18] LABS: ABG HCO3 33 mmol/L (22-26); ABG PCO2 102 mmHg (35-45); ABG PH 7.12 (7.35-7.45); ABG PO2 71 mmHg (80-105); ABG TCO2 36
[2020-03-16] MEDS: ENOXAPARIN SOD INJ 40 MG/0.4 ML SYR SC SCH (17:37)
[2020-03-17] VITALS (16 sets, daily range): BP systolic 109–130; BP diastolic 49–57
[2020-03-17] MEDS: ALBUTEROL SULFATE HFA 8GM INHALATION AEROSOL INH SCH ×5 (00:52→23:55)
[2020-03-17] MEDS: IPRATROPIUM BROMIDE INHALER 12.9 GM INH INH SCH ×5 (00:52→23:55)
[2020-03-17] MEDS: MIDAZOLAM HCL 5MG/ML 10ML VIAL 100 ML IV PRN ×2 (04:01→20:01)
[2020-03-17] MEDS: FENTANYL 2000MCG/NS 250 250 ML IV PRN (05:30)
[2020-03-17 05:41] LABS: BASOPHILS # (AUTO) 0.1 (0.0-0.1); BASOPHILS % 0.4 % (0.0-1.0); EOSINOPHILS # (AUTO) 0.2 (0.0-0.4); EOSINOPHILS % 1.4 % (0.0-6.0); HEMATOCRIT 33.9 % (34.2-44.1); HEMOGLOBIN 9.8 g/dL (12.0-16.0); LYMPHOCYTES # (AUTO) 0.6 (1.0-3.2); LYMPHOCYTES % 4.6 % (18.0-39.1); MEAN CORPUSCULAR HGB CONC 28.9 g/dL (31-35); MEAN CORPUSCULAR VOLUME 107.3 fL (81-99); MONOCYTES # (AUTO) 0.5 (0.2-0.8); MONOCYTES % 4.2 % (4.4-11.3); NEUTROPHILS # (AUTO) 10.9 (2.1-6.9); NEUTROPHILS % 85.2 % (38.7-80.0); PLATELET COUNT 276 x10e3/uL (140-360); RED BLOOD COUNT 3.16 x10e6/uL (3.6-5.1)
[2020-03-17] MEDS: PIPER-TAZ 3.375 GM 50 ML IV SCH ×3 (05:57→18:26)
[2020-03-17 06:12] LABS: ALANINE AMINOTRANSFERASE 156 IU/L (0-55); ALBUMIN 1.6 g/dL (3.5-5.0); ALBUMIN/GLOBULIN RATIO 0.4 (0.8-2.0); ALKALINE PHOSPHATASE 127 IU/L (40-150); ANION GAP 9.6 mmol/L (8-16); BLOOD UREA NITROGEN 29 mg/dL (7-26); BUN/CREATININE RATIO 44 (6-25); CARBON DIOXIDE 33 mmol/L (22-29); CHLORIDE 114 mmol/L (98-107); CREATININE, SERUM 0.66 mg/dL (0.57-1.11); EST GLOMERULAR FILTRATION RATE > 60 ML/MIN (60-); GLUCOSE 131 mg/dL (74-118); POTASSIUM 4.6 mmol/L (3.5-5.1); SODIUM 152 mmol/L (136-145)
[2020-03-17] MEDS: SODIUM CHLORIDE 0.9% 1000ML 1,000 ML IV SCH ×3 (08:00→18:26)
[2020-03-17] MEDS: CHOLECALCIFEROL 1,000 UNIT TAB PO SCH (08:44)
[2020-03-17] MEDS: ASCORBIC ACID 500 MG TAB PO SCH ×2 (08:44→18:26)
[2020-03-17] MEDS: ZINC SULFATE 220 MG CAP PO SCH (08:44)
[2020-03-17] MEDS: PANTOPRAZOLE 40 MG 10ML VIAL IV SCH (08:44)
[2020-03-17 11:19] LABS: ABG PCO2 100 mmHg (35-45); ABG PH 7.14 (7.35-7.45)
[2020-03-17 11:20] LABS: ABG HCO3 34 mmol/L (22-26); ABG PO2 88 mmHg (80-105); ABG TCO2 37
[2020-03-17 13:22] LABS: ABG HCO3 34 mmol/L (22-26); ABG PCO2 69 mmHg (35-45); ABG PO2 76 mmHg (80-105)
[2020-03-17 13:23] LABS: ABG TCO2 36
[2020-03-17] MEDS: ENOXAPARIN SOD INJ 40 MG/0.4 ML SYR SC SCH (18:26)
[2020-03-18] VITALS (25 sets, daily range): BP systolic 95–191; BP diastolic 51–101
[2020-03-18] MEDS: PIPER-TAZ 3.375 GM 50 ML IV SCH ×5 (00:09→23:39)
[2020-03-18] MEDS: MIDAZOLAM HCL 5MG/ML 10ML VIAL 100 ML IV PRN ×3 (00:29→23:30)
[2020-03-18] MEDS: HYDRALAZINE HCL 20 MG/ML VIAL IV PRN (03:30)
[2020-03-18] MEDS: ALBUTEROL SULFATE HFA 8GM INHALATION AEROSOL INH SCH ×4 (07:30→23:50)
[2020-03-18] MEDS: IPRATROPIUM BROMIDE INHALER 12.9 GM INH INH SCH ×4 (07:30→23:50)
[2020-03-18] MEDS: FENTANYL 2000MCG/NS 250 250 ML IV PRN ×2 (08:57→21:19)
[2020-03-18 09:04] LABS: BASOPHILS # (AUTO) 0.1 (0.0-0.1); BASOPHILS % 0.5 % (0.0-1.0); EOSINOPHILS # (AUTO) 0.3 (0.0-0.4); EOSINOPHILS % 1.5 % (0.0-6.0); HEMATOCRIT 35.8 % (34.2-44.1); HEMOGLOBIN 10.4 g/dL (12.0-16.0); LYMPHOCYTES # (AUTO) 0.9 (1.0-3.2); LYMPHOCYTES % 5.7 % (18.0-39.1); MEAN CORPUSCULAR HEMOGLOBIN 30.4 pg (28-32); MEAN CORPUSCULAR HGB CONC 29.1 g/dL (31-35); MEAN CORPUSCULAR VOLUME 104.7 fL (81-99); MONOCYTES # (AUTO) 0.5 (0.2-0.8); NEUTROPHILS # (AUTO) 13.7 (2.1-6.9); PLATELET COUNT 331 x10e3/uL (140-360); RED BLOOD COUNT 3.42 x10e6/uL (3.6-5.1); RED CELL DISTRIBUTION WIDTH 13.1 % (11.7-14.4)
[2020-03-18 09:38] LABS: ANION GAP 13.8 mmol/L (8-16); BLOOD UREA NITROGEN 27 mg/dL (7-26); BUN/CREATININE RATIO 45 (6-25); CALCIUM 7.9 mg/dL (8.4-10.2); CARBON DIOXIDE 29 mmol/L (22-29); CHLORIDE 112 mmol/L (98-107); EST GLOMERULAR FILTRATION RATE > 60 ML/MIN (60-); GLUCOSE 139 mg/dL (74-118); POTASSIUM 3.8 mmol/L (3.5-5.1); SODIUM 151 mmol/L (136-145)
[2020-03-18] MEDS: ZINC SULFATE 220 MG CAP PO SCH (09:52)
[2020-03-18] MEDS: PANTOPRAZOLE 40 MG 10ML VIAL IV SCH (09:52)
[2020-03-18] MEDS: CHOLECALCIFEROL 1,000 UNIT TAB PO SCH (09:52)
[2020-03-18] MEDS: ASCORBIC ACID 500 MG TAB PO SCH ×2 (09:52→17:40)
[2020-03-18] MEDS: BALSAM PERU/CASTOR OIL 60 GM OINT...G. TP SCH (09:52)
[2020-03-18] MEDS: ENOXAPARIN SOD INJ 40 MG/0.4 ML SYR SC SCH (17:41)
[2020-03-19] VITALS (24 sets, daily range): BP systolic 84–147; BP diastolic 47–61
[2020-03-19 04:41] LABS: BASOPHILS % 0.4 % (0.0-1.0); EOSINOPHILS # (AUTO) 0.2 (0.0-0.4); EOSINOPHILS % 2.7 % (0.0-6.0); HEMATOCRIT 28.5 % (34.2-44.1); HEMOGLOBIN 8.4 g/dL (12.0-16.0); LYMPHOCYTES # (AUTO) 0.7 (1.0-3.2); LYMPHOCYTES % 8.5 % (18.0-39.1); MEAN CORPUSCULAR HEMOGLOBIN 30.2 pg (28-32); MEAN CORPUSCULAR HGB CONC 29.5 g/dL (31-35); MEAN CORPUSCULAR VOLUME 102.5 fL (81-99); MONOCYTES # (AUTO) 0.2 (0.2-0.8); MONOCYTES % 2.5 % (4.4-11.3); NEUTROPHILS % 81.9 % (38.7-80.0); PLATELET COUNT 226 x10e3/uL (140-360); RED BLOOD COUNT 2.78 x10e6/uL (3.6-5.1); RED CELL DISTRIBUTION WIDTH 13.2 % (11.7-14.4)
[2020-03-19] MEDS: FENTANYL 2000MCG/NS 250 250 ML IV PRN ×3 (04:54→20:10)
[2020-03-19] MEDS: MIDAZOLAM HCL 5MG/ML 10ML VIAL 100 ML IV PRN ×4 (04:56→20:10)
[2020-03-19 04:59] LABS: ANION GAP 10.5 mmol/L (8-16); BLOOD UREA NITROGEN 27 mg/dL (7-26); BUN/CREATININE RATIO 52 (6-25); CALCIUM 7.2 mg/dL (8.4-10.2); CARBON DIOXIDE 31 mmol/L (22-29); CHLORIDE 112 mmol/L (98-107); CREATININE, SERUM 0.52 mg/dL (0.57-1.11); EST GLOMERULAR FILTRATION RATE > 60 ML/MIN (60-); GLUCOSE 134 mg/dL (74-118); POTASSIUM 3.5 mmol/L (3.5-5.1); SODIUM 150 mmol/L (136-145)
[2020-03-19 05:17] LABS: MAGNESIUM 1.7 MG/DL (1.3-2.1); PHOSPHORUS 1.5 MG/DL (2.3-4.7)
[2020-03-19] MEDS: PIPER-TAZ 3.375 GM 50 ML IV SCH ×3 (05:28→18:36)
[2020-03-19] MEDS: ALBUTEROL SULFATE HFA 8GM INHALATION AEROSOL INH SCH ×3 (07:00→20:05)
[2020-03-19] MEDS: IPRATROPIUM BROMIDE INHALER 12.9 GM INH INH SCH ×3 (07:00→20:05)
[2020-03-19 08:50] LABS: ABG HCO3 34 mmol/L (22-26); ABG PCO2 52 mmHg (35-45); ABG PH 7.42 (7.35-7.45); ABG PO2 130 mmHg (80-105); ABG TCO2 35
[2020-03-19] MEDS: CHOLECALCIFEROL 1,000 UNIT TAB PO SCH (09:22)
[2020-03-19] MEDS: ZINC SULFATE 220 MG CAP PO SCH (09:22)
[2020-03-19] MEDS: PANTOPRAZOLE 40 MG 10ML VIAL IV SCH (09:22)
[2020-03-19] MEDS: ASCORBIC ACID 500 MG TAB PO SCH ×2 (09:22→17:17)
[2020-03-19] MEDS: BALSAM PERU/CASTOR OIL 60 GM OINT...G. TP SCH (09:22)
[2020-03-19] MEDS: PROPOFOL IV EMULSION 10MG/ML 100 ML IV SCH ×2 (09:24→15:18)
[2020-03-19] MEDS ORDERED: FUROSEMIDE INJ 10 MG/ML 4 ML VIAL IV ONE (15:30)
[2020-03-19] MEDS ORDERED: FUROSEMIDE INJ 10 MG/ML 4 ML VIAL ONE (15:39)
[2020-03-19] MEDS: ENOXAPARIN SOD INJ 40 MG/0.4 ML SYR SC SCH (17:17)
[2020-03-20] VITALS (30 sets, daily range): BP systolic 86–160; BP diastolic 47–75
[2020-03-20] MEDS: PIPER-TAZ 3.375 GM 50 ML IV SCH ×5 (00:46→23:36)
[2020-03-20] MEDS: IPRATROPIUM BROMIDE INHALER 12.9 GM INH INH SCH ×4 (01:00→19:00)
[2020-03-20] MEDS: ALBUTEROL SULFATE HFA 8GM INHALATION AEROSOL INH SCH ×4 (01:00→19:00)
[2020-03-20] MEDS: MIDAZOLAM HCL 5MG/ML 10ML VIAL 100 ML IV PRN ×3 (03:57→19:13)
[2020-03-20] MEDS: FENTANYL 2000MCG/NS 250 250 ML IV PRN ×3 (03:57→19:12)
[2020-03-20] MEDS: PROPOFOL IV EMULSION 10MG/ML 100 ML IV SCH (06:33)
[2020-03-20 07:04] LABS: BASOPHILS % 0.3 % (0.0-1.0); EOSINOPHILS # (AUTO) 0.3 (0.0-0.4); EOSINOPHILS % 2.8 % (0.0-6.0); HEMATOCRIT 30.2 % (34.2-44.1); HEMOGLOBIN 9.2 g/dL (12.0-16.0); LYMPHOCYTES # (AUTO) 0.8 (1.0-3.2); LYMPHOCYTES % 6.8 % (18.0-39.1); MEAN CORPUSCULAR HEMOGLOBIN 30.9 pg (28-32); MEAN CORPUSCULAR HGB CONC 30.5 g/dL (31-35); MEAN CORPUSCULAR VOLUME 101.3 fL (81-99); MONOCYTES # (AUTO) 0.4 (0.2-0.8); MONOCYTES % 3.2 % (4.4-11.3); NEUTROPHILS # (AUTO) 9.5 (2.1-6.9); NEUTROPHILS % 83.3 % (38.7-80.0); PLATELET COUNT 236 x10e3/uL (140-360); RED BLOOD COUNT 2.98 x10e6/uL (3.6-5.1); RED CELL DISTRIBUTION WIDTH 13.3 % (11.7-14.4)
[2020-03-20 07:26] LABS: ANION GAP 11.7 mmol/L (8-16); BLOOD UREA NITROGEN 23 mg/dL (7-26); BUN/CREATININE RATIO 40 (6-25); CALCIUM 7.3 mg/dL (8.4-10.2); CARBON DIOXIDE 33 mmol/L (22-29); CHLORIDE 106 mmol/L (98-107); CREATININE, SERUM 0.57 mg/dL (0.57-1.11); EST GLOMERULAR FILTRATION RATE > 60 ML/MIN (60-); GLUCOSE 117 mg/dL (74-118); POTASSIUM 3.7 mmol/L (3.5-5.1); SODIUM 147 mmol/L (136-145)
[2020-03-20] MEDS: PANTOPRAZOLE 40 MG 10ML VIAL IV SCH (09:34)
[2020-03-20] MEDS: CHOLECALCIFEROL 1,000 UNIT TAB PO SCH (09:34)
[2020-03-20] MEDS: ZINC SULFATE 220 MG CAP PO SCH (09:34)
[2020-03-20] MEDS: BALSAM PERU/CASTOR OIL 60 GM OINT...G. TP SCH (09:34)
[2020-03-20] MEDS: ASCORBIC ACID 500 MG TAB PO SCH ×2 (09:34→18:15)
[2020-03-20] MEDS ORDERED: FUROSEMIDE INJ 10 MG/ML 4 ML VIAL IV ONE (11:30)
[2020-03-20] MEDS ORDERED: ATROPINE SULFATE 0.1 MG/ML 10ML SYR ONE (16:28)
[2020-03-20] MEDS: ENOXAPARIN SOD INJ 40 MG/0.4 ML SYR SC SCH (18:15)
[2020-03-21] VITALS (26 sets, daily range): BP systolic 92–150; BP diastolic 45–71
[2020-03-21] MEDS: IPRATROPIUM BROMIDE INHALER 12.9 GM INH INH SCH ×2 (01:00→19:00)
[2020-03-21] MEDS: ALBUTEROL SULFATE HFA 8GM INHALATION AEROSOL INH SCH ×4 (01:00→19:00)
[2020-03-21] MEDS: FENTANYL 2000MCG/NS 250 250 ML IV PRN ×2 (02:46→17:33)
[2020-03-21] MEDS: ACETAMINOPHEN 325 MG TAB PO PRN ×2 (02:51→17:31)
[2020-03-21] MEDS: PIPER-TAZ 3.375 GM 50 ML IV SCH (05:35)
[2020-03-21 05:42] LABS: BASOPHILS % 0.3 % (0.0-1.0); EOSINOPHILS # (AUTO) 0.1 (0.0-0.4); EOSINOPHILS % 0.9 % (0.0-6.0); HEMATOCRIT 25.5 % (34.2-44.1); HEMOGLOBIN 7.8 g/dL (12.0-16.0); LYMPHOCYTES # (AUTO) 0.6 (1.0-3.2); LYMPHOCYTES % 6.4 % (18.0-39.1); MEAN CORPUSCULAR HEMOGLOBIN 30.6 pg (28-32); MEAN CORPUSCULAR HGB CONC 30.6 g/dL (31-35); MONOCYTES # (AUTO) 0.3 (0.2-0.8); MONOCYTES % 2.7 % (4.4-11.3); NEUTROPHILS # (AUTO) 8.7 (2.1-6.9); NEUTROPHILS % 87.9 % (38.7-80.0); PLATELET COUNT 221 x10e3/uL (140-360); RED BLOOD COUNT 2.55 x10e6/uL (3.6-5.1); RED CELL DISTRIBUTION WIDTH 13.2 % (11.7-14.4)
[2020-03-21 06:03] LABS: ALANINE AMINOTRANSFERASE 200 IU/L (0-55); ALBUMIN 1.3 g/dL (3.5-5.0); ALBUMIN/GLOBULIN RATIO 0.3 (0.8-2.0); ALKALINE PHOSPHATASE 101 IU/L (40-150); ANION GAP 11.8 mmol/L (8-16); BLOOD UREA NITROGEN 24 mg/dL (7-26); BUN/CREATININE RATIO 39 (6-25); CALCIUM 7.4 mg/dL (8.4-10.2); CARBON DIOXIDE 35 mmol/L (22-29); CHLORIDE 102 mmol/L (98-107); CREATININE, SERUM 0.62 mg/dL (0.57-1.11); EST GLOMERULAR FILTRATION RATE > 60 ML/MIN (60-); GLUCOSE 108 mg/dL (74-118); POTASSIUM 3.8 mmol/L (3.5-5.1); SODIUM 145 mmol/L (136-145)
[2020-03-21] MEDS: MIDAZOLAM HCL 5MG/ML 10ML VIAL 100 ML IV PRN ×3 (06:34→19:58)
[2020-03-21] MEDS: PROPOFOL IV EMULSION 10MG/ML 100 ML IV SCH (08:00)
[2020-03-21] MEDS: CHOLECALCIFEROL 1,000 UNIT TAB PO SCH (08:01)
[2020-03-21] MEDS: ASCORBIC ACID 500 MG TAB PO SCH ×2 (08:01→17:30)
[2020-03-21] MEDS: FUROSEMIDE INJ 10 MG/ML 4 ML VIAL IV SCH (08:01)
[2020-03-21] MEDS: PANTOPRAZOLE 40 MG 10ML VIAL IV SCH (08:01)
[2020-03-21] MEDS: ZINC SULFATE 220 MG CAP PO SCH (08:01)
[2020-03-21] MEDS: BALSAM PERU/CASTOR OIL 60 GM OINT...G. TP SCH (08:01)
[2020-03-21 12:10] LABS: ABG HCO3 41 mmol/L (22-26); ABG PCO2 63 mmHg (35-45); ABG PH 7.42 (7.35-7.45); ABG PO2 68 mmHg (80-105)
[2020-03-21 12:11] LABS: ABG TCO2 43
[2020-03-21] MEDS: VANCOMYCIN 1GM/NS 250 ML 250 ML IV SCH (12:22)
[2020-03-21] MEDS ORDERED: ATROPINE SULFATE 0.1 MG/ML 10ML SYR ONE (13:13)
[2020-03-21] MEDS: MEROPENEM 500MG/ NS 50ML 50 ML IV SCH (14:25)
[2020-03-21] MEDS: ENOXAPARIN SOD INJ 40 MG/0.4 ML SYR SC SCH (17:30)
[2020-03-22] VITALS (24 sets, daily range): BP systolic 105–158; BP diastolic 43–76
[2020-03-22] MEDS: FENTANYL 2000MCG/NS 250 250 ML IV PRN ×4 (00:13→22:20)
[2020-03-22] MEDS: MIDAZOLAM HCL 5MG/ML 10ML VIAL 100 ML IV PRN ×4 (00:14→23:10)
[2020-03-22] MEDS: MEROPENEM 500MG/ NS 50ML 50 ML IV SCH ×4 (00:18→22:30)
[2020-03-22] MEDS: VANCOMYCIN 1GM/NS 250 ML 250 ML IV SCH ×2 (00:44→12:09)
[2020-03-22] MEDS: IPRATROPIUM BROMIDE INHALER 12.9 GM INH INH SCH ×5 (00:46→19:00)
[2020-03-22] MEDS: ALBUTEROL SULFATE HFA 8GM INHALATION AEROSOL INH SCH ×4 (01:00→19:00)
[2020-03-22] MEDS ORDERED: ACETAMINOPHEN 1000 MG/100 ML 100 ML IV ONE (01:07)
[2020-03-22] MEDS ORDERED: SODIUM CHLORIDE 0.9% 1000ML 1,000 ML ONE (01:10)
[2020-03-22] MEDS ORDERED: ACETAMINOPHEN 1000 MG/100 ML IV PRN (01:30)
[2020-03-22 03:03] LABS: BASOPHILS % 0.3 % (0.0-1.0); EOSINOPHILS # (AUTO) 0.2 (0.0-0.4); HEMATOCRIT 27.3 % (34.2-44.1); HEMOGLOBIN 8.3 g/dL (12.0-16.0); LYMPHOCYTES # (AUTO) 0.9 (1.0-3.2); LYMPHOCYTES % 8.5 % (18.0-39.1); MEAN CORPUSCULAR HEMOGLOBIN 30.3 pg (28-32); MEAN CORPUSCULAR HGB CONC 30.4 g/dL (31-35); MEAN CORPUSCULAR VOLUME 99.6 fL (81-99); MONOCYTES # (AUTO) 0.4 (0.2-0.8); MONOCYTES % 4.1 % (4.4-11.3); NEUTROPHILS # (AUTO) 8.8 (2.1-6.9); NEUTROPHILS % 82.6 % (38.7-80.0); PLATELET COUNT 231 x10e3/uL (140-360); RED BLOOD COUNT 2.74 x10e6/uL (3.6-5.1); RED CELL DISTRIBUTION WIDTH 13.9 % (11.7-14.4)
[2020-03-22 03:27] LABS: ALANINE AMINOTRANSFERASE 179 IU/L (0-55); ALBUMIN 1.4 g/dL (3.5-5.0); ALBUMIN/GLOBULIN RATIO 0.3 (0.8-2.0); ALKALINE PHOSPHATASE 92 IU/L (40-150); ANION GAP 10.6 mmol/L (8-16); BLOOD UREA NITROGEN 23 mg/dL (7-26); BUN/CREATININE RATIO 36 (6-25); CALCIUM 7.5 mg/dL (8.4-10.2); CARBON DIOXIDE 37 mmol/L (22-29); CHLORIDE 98 mmol/L (98-107); CREATININE, SERUM 0.64 mg/dL (0.57-1.11); EST GLOMERULAR FILTRATION RATE > 60 ML/MIN (60-); GLUCOSE 104 mg/dL (74-118); MAGNESIUM 1.5 MG/DL (1.3-2.1); PHOSPHORUS 2.4 MG/DL (2.3-4.7); POTASSIUM 3.6 mmol/L (3.5-5.1); SODIUM 142 mmol/L (136-145)
[2020-03-22] MEDS ORDERED: ACETAMINOPHEN 1000 MG/100 ML IV SCH (06:00)
[2020-03-22] MEDS: PROPOFOL IV EMULSION 10MG/ML 100 ML IV SCH (07:19)
[2020-03-22] MEDS: CHOLECALCIFEROL 1,000 UNIT TAB PO SCH (08:11)
[2020-03-22] MEDS: FUROSEMIDE INJ 10 MG/ML 4 ML VIAL IV SCH (08:11)
[2020-03-22] MEDS: ZINC SULFATE 220 MG CAP PO SCH (08:11)
[2020-03-22] MEDS: PANTOPRAZOLE 40 MG 10ML VIAL IV SCH (08:11)
[2020-03-22] MEDS: ASCORBIC ACID 500 MG TAB PO SCH ×2 (08:11→16:16)
[2020-03-22] MEDS: BALSAM PERU/CASTOR OIL 60 GM OINT...G. TP SCH (08:11)
[2020-03-22 12:09] LABS: ABG PH 7.36 (7.35-7.45)
[2020-03-22 12:10] LABS: ABG HCO3 42 mmol/L (22-26); ABG PCO2 73 mmHg (35-45); ABG PO2 71 mmHg (80-105); ABG TCO2 44
[2020-03-22] MEDS: PROPOFOL IV EMULSION 10MG/ML 100 ML IV PRN (23:00)
[2020-03-23] VITALS (25 sets, daily range): BP systolic 93–128; BP diastolic 47–74
[2020-03-23] MEDS: VANCOMYCIN 1GM/NS 250 ML 250 ML IV SCH ×2 (00:55→13:08)
[2020-03-23 01:52] LABS: ABG HCO3 42 mmol/L (22-26); ABG PCO2 91 mmHg (35-45); ABG PH 7.27 (7.35-7.45); ABG PO2 45 mmHg (80-105); ABG TCO2 45
[2020-03-23 01:56] LABS: ABG HCO3 42 mmol/L (22-26); ABG PCO2 91 mmHg (35-45); ABG PH 7.27 (7.35-7.45); ABG PO2 45 mmHg (80-105); ABG TCO2 45
[2020-03-23] MEDS: PROPOFOL IV EMULSION 10MG/ML 100 ML IV PRN ×3 (02:35→18:05)
[2020-03-23] MEDS: MIDAZOLAM HCL 5MG/ML 10ML VIAL 100 ML IV PRN ×4 (04:20→23:34)
[2020-03-23] MEDS: MEROPENEM 500MG/ NS 50ML 50 ML IV SCH ×3 (05:30→21:54)
[2020-03-23] MEDS: FUROSEMIDE INJ 10 MG/ML 4 ML VIAL IV SCH (08:16)
[2020-03-23] MEDS: BALSAM PERU/CASTOR OIL 60 GM OINT...G. TP SCH (08:16)
[2020-03-23] MEDS: ZINC SULFATE 220 MG CAP PO SCH (08:16)
[2020-03-23] MEDS: CHOLECALCIFEROL 1,000 UNIT TAB PO SCH (08:16)
[2020-03-23] MEDS: ASCORBIC ACID 500 MG TAB PO SCH ×2 (08:16→16:57)
[2020-03-23] MEDS: PANTOPRAZOLE 40 MG 10ML VIAL IV SCH (08:16)
[2020-03-23] MEDS: FENTANYL 2000MCG/NS 250 250 ML IV PRN ×2 (13:08→20:18)
[2020-03-23] MEDS ORDERED: SUCCINYLCHOLINE CHLORIDE 20 MG/ML 10ML VIAL ONE (13:26)
[2020-03-23] MEDS ORDERED: VECURONIUM BROMIDE FOR INJ 20 MG VIAL ONE (13:26)
[2020-03-23] MEDS ORDERED: ETOMIDATE 2 MG/ML 10 ML INJ IV ONE (13:26)
[2020-03-23] MEDS ORDERED: WATER STERILE 10 ML VIAL ONE (13:26)
[2020-03-23] MEDS: ENOXAPARIN SOD INJ 40 MG/0.4 ML SYR SC SCH (16:57)
[2020-03-23] MEDS: METHYLPREDNISOLONE SOD SUCC 40 MG/ML VIAL 1ML IV SCH (21:13)
[2020-03-24] VITALS (16 sets, daily range): BP systolic 107–150; BP diastolic 49–91
[2020-03-24] MEDS: VANCOMYCIN 1GM/NS 250 ML 250 ML IV SCH ×2 (00:51→11:52)
[2020-03-24] MEDS: PROPOFOL IV EMULSION 10MG/ML 100 ML IV PRN ×3 (02:44→20:47)
[2020-03-24] MEDS: FENTANYL 2000MCG/NS 250 250 ML IV PRN ×3 (03:11→18:10)
[2020-03-24 05:09] LABS: BASOPHILS # (AUTO) 0.1 (0.0-0.1); BASOPHILS % 0.3 % (0.0-1.0); EOSINOPHILS % 0.1 % (0.0-6.0); HEMATOCRIT 30.7 % (34.2-44.1); LYMPHOCYTES # (AUTO) 0.6 (1.0-3.2); LYMPHOCYTES % 3.4 % (18.0-39.1); MEAN CORPUSCULAR HEMOGLOBIN 30.2 pg (28-32); MEAN CORPUSCULAR HGB CONC 29.3 g/dL (31-35); MONOCYTES # (AUTO) 0.3 (0.2-0.8); NEUTROPHILS # (AUTO) 14.8 (2.1-6.9); NEUTROPHILS % 91.3 % (38.7-80.0); PLATELET COUNT 273 x10e3/uL (140-360); RED BLOOD COUNT 2.98 x10e6/uL (3.6-5.1)
[2020-03-24] MEDS: MEROPENEM 500MG/ NS 50ML 50 ML IV SCH ×2 (05:37→13:13)
[2020-03-24 05:45] LABS: ANION GAP 13.3 mmol/L (8-16); CALCIUM 7.9 mg/dL (8.4-10.2); CREATININE, SERUM 1.05 mg/dL (0.57-1.11); POTASSIUM 5.3 mmol/L (3.5-5.1)
[2020-03-24] MEDS: PANTOPRAZOLE 40 MG 10ML VIAL IV SCH (08:18)
[2020-03-24] MEDS: ASCORBIC ACID 500 MG TAB PO SCH ×2 (08:21→16:06)
[2020-03-24] MEDS: METHYLPREDNISOLONE SOD SUCC 40 MG/ML VIAL 1ML IV SCH ×2 (08:21→20:57)
[2020-03-24] MEDS: BALSAM PERU/CASTOR OIL 60 GM OINT...G. TP SCH (08:21)
[2020-03-24] MEDS: CHOLECALCIFEROL 1,000 UNIT TAB PO SCH (08:21)
[2020-03-24] MEDS: ZINC SULFATE 220 MG CAP PO SCH (08:21)
[2020-03-24] MEDS: MIDAZOLAM HCL 5MG/ML 10ML VIAL 100 ML IV PRN ×3 (10:26→20:48)
[2020-03-24 14:47] LABS: ABG PCO2 102 mmHg (35-45); ABG PH 7.18 (7.35-7.45)
[2020-03-24 14:48] LABS: ABG HCO3 38 mmol/L (22-26); ABG PO2 56 mmHg (80-105); ABG TCO2 41
[2020-03-24] MEDS: ENOXAPARIN SOD INJ 40 MG/0.4 ML SYR SC SCH (16:06)
[2020-03-24] MEDS: SODIUM CHLORIDE 0.9% 1000ML 1,000 ML IV SCH ×2 (16:34→16:35)
[2020-03-24] MEDS ORDERED: FUROSEMIDE INJ 10 MG/ML 2 ML VIAL ONE (17:44)
[2020-03-24] MEDS ORDERED: FUROSEMIDE INJ 10 MG/ML 2 ML VIAL IV ONE (17:55)
[2020-03-24 22:08] LABS: ALBUMIN 1.4 g/dL (3.5-5.0); ALBUMIN/GLOBULIN RATIO 0.3 (0.8-2.0); ANION GAP 16.5 mmol/L (8-16); CALCIUM 7.7 mg/dL (8.4-10.2); CREATININE, SERUM 1.56 mg/dL (0.57-1.11); POTASSIUM 5.5 mmol/L (3.5-5.1)
[2020-03-24] MEDS ORDERED: DEXTROSE 50% SYRINGE 50 ML IV STA (22:39)
[2020-03-24] MEDS ORDERED: INSULIN REGULAR, HUMAN 100 UNIT/1 ML 3ML VIAL IV ONE (22:45)
[2020-03-24] MEDS ORDERED: SODIUM CHLORIDE 0.9% 1000ML 1,000 ML IV ONE (22:45)
[2020-03-24] MEDS ORDERED: CALCIUM GLUCONATE 10% INJ 4.65 MEQ in SODIUM CHLORIDE 0.9% 50ML 50 ML IV ONE (22:45)
[2020-03-25] VITALS (16 sets, daily range): BP systolic 102–148; BP diastolic 44–54
[2020-03-25] MEDS: FENTANYL 2000MCG/NS 250 250 ML IV PRN ×3 (03:45→16:25)
[2020-03-25 06:17] LABS: ALBUMIN 2.3 g/dL (3.5-5.0); ALBUMIN/GLOBULIN RATIO 0.7 (0.8-2.0); CALCIUM 7.9 mg/dL (8.4-10.2); CREATININE, SERUM 2.54 mg/dL (0.57-1.11)
[2020-03-25] MEDS: PROPOFOL IV EMULSION 10MG/ML 100 ML IV PRN ×2 (07:30→15:46)
[2020-03-25] MEDS: CHOLECALCIFEROL 1,000 UNIT TAB PO SCH (08:05)
[2020-03-25] MEDS: PANTOPRAZOLE 40 MG 10ML VIAL IV SCH (08:05)
[2020-03-25] MEDS: ZINC SULFATE 220 MG CAP PO SCH (08:05)
[2020-03-25] MEDS: METHYLPREDNISOLONE SOD SUCC 40 MG/ML VIAL 1ML IV SCH ×2 (08:05→21:35)
[2020-03-25] MEDS: ASCORBIC ACID 500 MG TAB PO SCH ×2 (08:05→16:18)
[2020-03-25] MEDS: BALSAM PERU/CASTOR OIL 60 GM OINT...G. TP SCH (08:05)
[2020-03-25] MEDS: MIDAZOLAM HCL 5MG/ML 10ML VIAL 100 ML IV PRN ×3 (11:26→21:58)
[2020-03-25] MEDS ORDERED: PROPOFOL IV EMULSION 10 MG/ML 50 ML VIAL IV ONE (13:26)
[2020-03-25] MEDS ORDERED: MIDAZOLAM HCL 5MG/ML 10ML VIAL 100 ML BAG IV ONE (13:26)
[2020-03-25] MEDS ORDERED: FENTANYL 2,000 MCG/250 ML BAG ONE (13:26)
[2020-03-25] MEDS ORDERED: FUROSEMIDE INJ 10 MG/ML 2 ML VIAL IV ONE (14:45)
[2020-03-25] MEDS: SODIUM CHLORIDE 0.9% 1000ML 1,000 ML IV SCH (14:53)
[2020-03-25] MEDS: ENOXAPARIN SOD INJ 40 MG/0.4 ML SYR SC SCH (16:18)
[2020-03-25] MEDS ORDERED: ATROPINE SULFATE 0.1 MG/ML 10ML SYR ONE (16:57)
[2020-03-25 17:20] LABS: ALBUMIN 1.4 g/dL (3.5-5.0); ALBUMIN/GLOBULIN RATIO 0.3 (0.8-2.0); ANION GAP 16.4 mmol/L (8-16); CALCIUM 7.3 mg/dL (8.4-10.2); CREATININE, SERUM 2.2 mg/dL (0.57-1.11)
[2020-03-25 17:21] LABS: POTASSIUM 5.4 mmol/L (3.5-5.1)
[2020-03-26] VITALS (25 sets, daily range): BP systolic 91–115; BP diastolic 41–77
[2020-03-26] MEDS: PROPOFOL IV EMULSION 10MG/ML 100 ML IV PRN ×4 (00:19→20:49)
[2020-03-26] MEDS ORDERED: HEPARIN SOD (PORCINE) 1000 UNIT/ML SDV ONE ×2 (00:20→20:52)
[2020-03-26] MEDS: SODIUM CHLORIDE 0.9% 1000ML 1,000 ML IV SCH ×2 (00:45→11:54)
[2020-03-26] MEDS: FENTANYL 2000MCG/NS 250 250 ML IV PRN ×2 (01:35→09:03)
[2020-03-26] MEDS: MIDAZOLAM HCL 5MG/ML 10ML VIAL 100 ML IV PRN ×4 (02:53→18:14)
[2020-03-26 05:52] LABS: BASOPHILS % 0.2 % (0.0-1.0); HEMOGLOBIN 7.1 g/dL (12.0-16.0); LYMPHOCYTES # (AUTO) 0.8 (1.0-3.2); LYMPHOCYTES % 4.7 % (18.0-39.1); MEAN CORPUSCULAR HEMOGLOBIN 31.1 pg (28-32); MEAN CORPUSCULAR HGB CONC 30.9 g/dL (31-35); MEAN CORPUSCULAR VOLUME 100.9 fL (81-99); MONOCYTES # (AUTO) 0.7 (0.2-0.8); MONOCYTES % 4.1 % (4.4-11.3); NEUTROPHILS # (AUTO) 15.3 (2.1-6.9); PLATELET COUNT 349 x10e3/uL (140-360); RED BLOOD COUNT 2.28 x10e6/uL (3.6-5.1); RED CELL DISTRIBUTION WIDTH 14.4 % (11.7-14.4)
[2020-03-26 06:33] LABS: ALBUMIN 1.4 g/dL (3.5-5.0); ALBUMIN/GLOBULIN RATIO 0.4 (0.8-2.0); ANION GAP 17.1 mmol/L (8-16); CALCIUM 7.3 mg/dL (8.4-10.2); CREATININE, SERUM 1.95 mg/dL (0.57-1.11); POTASSIUM 5.1 mmol/L (3.5-5.1)
[2020-03-26 06:56] LABS: MAGNESIUM 1.9 MG/DL (1.3-2.1); PHOSPHORUS 5.7 MG/DL (2.3-4.7)
[2020-03-26] MEDS: CHOLECALCIFEROL 1,000 UNIT TAB PO SCH (08:18)
[2020-03-26] MEDS: METHYLPREDNISOLONE SOD SUCC 40 MG/ML VIAL 1ML IV SCH (08:18)
[2020-03-26] MEDS: ASCORBIC ACID 500 MG TAB PO SCH ×2 (08:18→16:28)
[2020-03-26] MEDS: PANTOPRAZOLE 40 MG 10ML VIAL IV SCH (08:18)
[2020-03-26] MEDS: ZINC SULFATE 220 MG CAP PO SCH (08:18)
[2020-03-26] MEDS: BALSAM PERU/CASTOR OIL 60 GM OINT...G. TP SCH (08:18)
[2020-03-26] MEDS ORDERED: FUROSEMIDE INJ 10 MG/ML 4 ML VIAL IV ONE (14:30)
[2020-03-26] MEDS ORDERED: CALCIUM CHLORIDE 13.6 MEQ in SODIUM CHLORIDE 0.9% 100 ML 100 ML IV ONE (14:45)
[2020-03-26] MEDS: ENOXAPARIN SOD INJ 40 MG/0.4 ML SYR SC SCH (16:28)
[2020-03-26 16:48] LABS: ABG PCO2 84 mmHg (35-45); ABG PH 7.14 (7.35-7.45)
[2020-03-26 16:49] LABS: ABG HCO3 29 mmol/L (22-26); ABG PO2 72 mmHg (80-105); ABG TCO2 31
[2020-03-26] MEDS ORDERED: METHYLPREDNISOLONE SOD SUCC 40 MG/ML VIAL 1ML IV SCH (21:00)
[2020-03-27] VITALS (22 sets, daily range): BP systolic 93–146; BP diastolic 47–67
[2020-03-27] MEDS: MIDAZOLAM HCL 5MG/ML 10ML VIAL 100 ML IV PRN ×5 (01:22→21:02)
[2020-03-27 04:25] LABS: BASOPHILS % 0.2 % (0.0-1.0); EOSINOPHILS # (AUTO) 0.1 (0.0-0.4); EOSINOPHILS % 0.3 % (0.0-6.0); LYMPHOCYTES # (AUTO) 1.4 (1.0-3.2); LYMPHOCYTES % 9.3 % (18.0-39.1); MEAN CORPUSCULAR HEMOGLOBIN 30.6 pg (28-32); MEAN CORPUSCULAR HGB CONC 30.1 g/dL (31-35); MEAN CORPUSCULAR VOLUME 101.8 fL (81-99); MONOCYTES % 6.4 % (4.4-11.3); NEUTROPHILS # (AUTO) 11.6 (2.1-6.9); NEUTROPHILS % 77.8 % (38.7-80.0); PLATELET COUNT 363 x10e3/uL (140-360); RED BLOOD COUNT 2.22 x10e6/uL (3.6-5.1); RED CELL DISTRIBUTION WIDTH 14.8 % (11.7-14.4)
[2020-03-27 04:30] LABS: HEMATOCRIT 22.6 % (34.2-44.1); HEMOGLOBIN 6.8 g/dL (12.0-16.0)
[2020-03-27 04:41] LABS: ALBUMIN 1.4 g/dL (3.5-5.0); ALBUMIN/GLOBULIN RATIO 0.4 (0.8-2.0); ANION GAP 14.1 mmol/L (8-16); CALCIUM 7.4 mg/dL (8.4-10.2); CREATININE, SERUM 1.57 mg/dL (0.57-1.11); MAGNESIUM 1.8 MG/DL (1.3-2.1); PHOSPHORUS 4.6 MG/DL (2.3-4.7); POTASSIUM 4.1 mmol/L (3.5-5.1)
[2020-03-27] MEDS: FENTANYL 2000MCG/NS 250 250 ML IV PRN ×2 (05:04)
[2020-03-27 07:20] LABS: BAND NEUTROPHILS % (MANUAL) 1 %; LYMPHOCYTES % (MANUAL) 5 % (19-48); MONOCYTES % (MANUAL) 6 % (3.4-9.0); MYELOCYTES % (MANUAL) 3 % (0-0); NEUTROPHILS % (MANUAL) 85 % (40-74); NUCLEATED RED BLOOD CELLS 2
[2020-03-27 07:24] LABS: ANISOCYTOSIS SLIGHT; PLATELET ESTIMATE SLIGHTLY INCREASED; PLATELET MORPHOLOGY COMMENT NORMAL; RBC MORPHOLOGY COMMENT NORMAL
[2020-03-27] MEDS ORDERED: SODIUM CHLORIDE 0.9% 250ML 250 ML IV ONE (08:15)
[2020-03-27] MEDS ORDERED: METHYLPREDNISOLONE SOD SUCC 40 MG/ML VIAL 1ML IV SCH (09:00)
[2020-03-27] MEDS: PANTOPRAZOLE 40 MG 10ML VIAL IV SCH (09:49)
[2020-03-27] MEDS: BALSAM PERU/CASTOR OIL 60 GM OINT...G. TP SCH (09:49)
[2020-03-27] MEDS: ASCORBIC ACID 500 MG TAB PO SCH ×2 (09:49→16:13)
[2020-03-27] MEDS: ZINC SULFATE 220 MG CAP PO SCH (09:49)
[2020-03-27] MEDS: CHOLECALCIFEROL 1,000 UNIT TAB PO SCH ×2 (09:49→11:26)
[2020-03-27] MEDS ORDERED: SODIUM CHLORIDE 0.9% 250ML 500 ML IV PRN (11:00)
[2020-03-27] MEDS ORDERED: HEPARIN SOD (PORCINE) 1000 UNIT/ML SDV IV PRN (11:00)
[2020-03-27] MEDS ORDERED: MANNITOL 25% 12.5GM/50 ML VIAL IV PRN (11:00)
[2020-03-27] MEDS ORDERED: SODIUM CHLORIDE 0.9% 1000ML 2,000 ML IV PRN (11:00)
[2020-03-27] MEDS ORDERED: ALBUMIN 25% 12.5GM 0.25 GM/ML BTL IV PRN (11:00)
[2020-03-27] MEDS: FENTANYL 2000MCG/NS 250 250 ML IV SCH ×2 (11:25→19:48)
[2020-03-27 14:26] LABS: ABG PH 7.14 (7.35-7.45)
[2020-03-27 14:27] LABS: ABG HCO3 27 mmol/L (22-26); ABG PCO2 79 mmHg (35-45); ABG PO2 61 mmHg (80-105); ABG TCO2 29
[2020-03-27] MEDS ORDERED: FUROSEMIDE INJ 10 MG/ML 4 ML VIAL IV ONE (14:45)
[2020-03-27] MEDS: ENOXAPARIN SOD INJ 40 MG/0.4 ML SYR SC SCH (16:14)
[2020-03-28] VITALS (24 sets, daily range): BP systolic 94–186; BP diastolic 47–76
[2020-03-28] MEDS: FENTANYL 2000MCG/NS 250 250 ML IV SCH ×2 (02:13→18:47)
[2020-03-28] MEDS: PROPOFOL IV EMULSION 10MG/ML 100 ML IV PRN (02:26)
[2020-03-28] MEDS: MIDAZOLAM HCL 5MG/ML 10ML VIAL 100 ML IV PRN ×2 (02:34→18:38)
[2020-03-28 04:36] LABS: BASOPHILS # (AUTO) 0.1 (0.0-0.1); BASOPHILS % 0.3 % (0.0-1.0); EOSINOPHILS # (AUTO) 0.1 (0.0-0.4); EOSINOPHILS % 0.4 % (0.0-6.0); HEMATOCRIT 28.2 % (34.2-44.1); HEMOGLOBIN 8.6 g/dL (12.0-16.0); LYMPHOCYTES % 6.3 % (18.0-39.1); MEAN CORPUSCULAR HEMOGLOBIN 29.5 pg (28-32); MEAN CORPUSCULAR HGB CONC 30.5 g/dL (31-35); MEAN CORPUSCULAR VOLUME 96.6 fL (81-99); MONOCYTES # (AUTO) 0.7 (0.2-0.8); MONOCYTES % 4.3 % (4.4-11.3); NEUTROPHILS # (AUTO) 13.4 (2.1-6.9); NEUTROPHILS % 83.4 % (38.7-80.0); PLATELET COUNT 314 x10e3/uL (140-360); RED BLOOD COUNT 2.92 x10e6/uL (3.6-5.1)
[2020-03-28 05:03] LABS: ALBUMIN 1.4 g/dL (3.5-5.0); ALBUMIN/GLOBULIN RATIO 0.3 (0.8-2.0); ANION GAP 15.9 mmol/L (8-16); CALCIUM 7.4 mg/dL (8.4-10.2); CREATININE, SERUM 2.26 mg/dL (0.57-1.11); POTASSIUM 4.9 mmol/L (3.5-5.1)
[2020-03-28] MEDS: HYDRALAZINE HCL 20 MG/ML VIAL IV PRN (07:29)
[2020-03-28] MEDS: PANTOPRAZOLE 40 MG 10ML VIAL IV SCH (08:58)
[2020-03-28] MEDS: ZINC SULFATE 220 MG CAP PO SCH (08:58)
[2020-03-28] MEDS: ASCORBIC ACID 500 MG TAB PO SCH ×2 (08:58→17:13)
[2020-03-28] MEDS: BALSAM PERU/CASTOR OIL 60 GM OINT...G. TP SCH (08:58)
[2020-03-28 09:02] LABS: ABG HCO3 25 mmol/L (22-26); ABG PCO2 75 mmHg (35-45); ABG PH 7.13 (7.35-7.45); ABG PO2 62 mmHg (80-105); ABG TCO2 27
[2020-03-28] MEDS ORDERED: SODIUM BICARBONATE 8.4% INJ 50 ML SYR IV STA (09:45)
[2020-03-28] MEDS ORDERED: CALCIUM CARBONATE 500 MG CHEWABLE TABS PO PRN (16:15)
[2020-03-28] MEDS: CITRIC ACID/SODIUM CITRATE 30 ML UDC PO SCH (17:13)
[2020-03-28] MEDS: ENOXAPARIN SOD INJ 40 MG/0.4 ML SYR SC SCH (17:13)
[2020-03-29] VITALS (26 sets, daily range): BP systolic 103–144; BP diastolic 38–81
[2020-03-29] MEDS: MIDAZOLAM HCL 5MG/ML 10ML VIAL 100 ML IV PRN ×5 (00:14→22:06)
[2020-03-29] MEDS: FENTANYL 2000MCG/NS 250 250 ML IV SCH ×4 (02:09→22:57)
[2020-03-29 05:02] LABS: BASOPHILS % 0.3 % (0.0-1.0); EOSINOPHILS % 0.2 % (0.0-6.0); HEMATOCRIT 24.3 % (34.2-44.1); HEMOGLOBIN 7.5 g/dL (12.0-16.0); LYMPHOCYTES # (AUTO) 0.7 (1.0-3.2); LYMPHOCYTES % 4.5 % (18.0-39.1); MEAN CORPUSCULAR HEMOGLOBIN 30.2 pg (28-32); MEAN CORPUSCULAR HGB CONC 30.9 g/dL (31-35); MONOCYTES # (AUTO) 0.5 (0.2-0.8); MONOCYTES % 3.5 % (4.4-11.3); NEUTROPHILS # (AUTO) 12.5 (2.1-6.9); NEUTROPHILS % 86.4 % (38.7-80.0); PLATELET COUNT 302 x10e3/uL (140-360); RED BLOOD COUNT 2.48 x10e6/uL (3.6-5.1); RED CELL DISTRIBUTION WIDTH 16.3 % (11.7-14.4)
[2020-03-29 05:23] LABS: ANION GAP 14.9 mmol/L (8-16); CREATININE, SERUM 1.68 mg/dL (0.57-1.11); POTASSIUM 3.9 mmol/L (3.5-5.1)
[2020-03-29 06:05] LABS: ABG HCO3 30 mmol/L (22-26); ABG PCO2 82 mmHg (35-45); ABG PH 7.17 (7.35-7.45); ABG TCO2 32
[2020-03-29 06:08] LABS: ABG PO2 110 mmHg (80-105)
[2020-03-29] MEDS: ZINC SULFATE 220 MG CAP PO SCH (08:48)
[2020-03-29] MEDS: CITRIC ACID/SODIUM CITRATE 30 ML UDC PO SCH ×2 (08:48→16:31)
[2020-03-29] MEDS: PANTOPRAZOLE 40 MG 10ML VIAL IV SCH (08:48)
[2020-03-29] MEDS: BALSAM PERU/CASTOR OIL 60 GM OINT...G. TP SCH (08:48)
[2020-03-29] MEDS: CEFEPIME HCL 1GM 1 GM in SODIUM CHLORIDE 0.9% 50ML 50 ML IV SCH (12:30)
[2020-03-29] MEDS: VANCOMYCIN 1GM/NS 250 ML 250 ML IV SCH (13:00)
[2020-03-29] MEDS: ENOXAPARIN SOD INJ 40 MG/0.4 ML SYR SC SCH (16:31)
[2020-03-30] VITALS (26 sets, daily range): BP systolic 98–146; BP diastolic 51–80
[2020-03-30] MEDS: MIDAZOLAM HCL 5MG/ML 10ML VIAL 100 ML IV PRN ×4 (03:00→19:31)
[2020-03-30] MEDS: FENTANYL 2000MCG/NS 250 250 ML IV SCH ×3 (05:20→19:30)
[2020-03-30 05:57] LABS: BASOPHILS # (AUTO) 0.1 (0.0-0.1); BASOPHILS % 0.4 % (0.0-1.0); EOSINOPHILS # (AUTO) 0.1 (0.0-0.4); EOSINOPHILS % 0.7 % (0.0-6.0); HEMATOCRIT 27.3 % (34.2-44.1); HEMOGLOBIN 8.1 g/dL (12.0-16.0); LYMPHOCYTES # (AUTO) 0.6 (1.0-3.2); MEAN CORPUSCULAR HEMOGLOBIN 29.6 pg (28-32); MEAN CORPUSCULAR HGB CONC 29.7 g/dL (31-35); MEAN CORPUSCULAR VOLUME 99.6 fL (81-99); MONOCYTES # (AUTO) 0.5 (0.2-0.8); MONOCYTES % 3.1 % (4.4-11.3); NEUTROPHILS # (AUTO) 13.8 (2.1-6.9); NEUTROPHILS % 87.9 % (38.7-80.0); PLATELET COUNT 333 x10e3/uL (140-360); RED BLOOD COUNT 2.74 x10e6/uL (3.6-5.1); RED CELL DISTRIBUTION WIDTH 16.8 % (11.7-14.4)
[2020-03-30 06:23] LABS: ANION GAP 18.9 mmol/L (8-16); CALCIUM 8.1 mg/dL (8.4-10.2); CREATININE, SERUM 2.48 mg/dL (0.57-1.11)
[2020-03-30 06:28] LABS: POTASSIUM 4.9 mmol/L (3.5-5.1)
[2020-03-30] MEDS: PANTOPRAZOLE 40 MG 10ML VIAL IV SCH (08:25)
[2020-03-30] MEDS: BALSAM PERU/CASTOR OIL 60 GM OINT...G. TP SCH (08:25)
[2020-03-30] MEDS: CITRIC ACID/SODIUM CITRATE 30 ML UDC PO SCH ×2 (08:25→16:03)
[2020-03-30] MEDS ORDERED: MIDAZOLAM HCL 5MG/ML 10ML VIAL 100 ML BAG IV ONE (10:28)
[2020-03-30] MEDS ORDERED: FENTANYL 2,000 MCG/250 ML BAG ONE (10:28)
[2020-03-30] MEDS ORDERED: EPOETIN ALFA-EPBX 10,000 UNIT/ML VIAL IV ONE (12:30)
[2020-03-30] MEDS: VANCOMYCIN 1GM/NS 250 ML 250 ML IV SCH (16:03)
[2020-03-30] MEDS: CEFEPIME HCL 1GM 1 GM in SODIUM CHLORIDE 0.9% 50ML 50 ML IV SCH (16:03)
[2020-03-31] VITALS (19 sets, daily range): BP systolic 102–148; BP diastolic 48–90
[2020-03-31] MEDS: MIDAZOLAM HCL 5MG/ML 10ML VIAL 100 ML IV PRN ×4 (00:29→22:00)
[2020-03-31] MEDS: FENTANYL 2000MCG/NS 250 250 ML IV SCH ×3 (01:53→23:10)
[2020-03-31 06:51] LABS: ALBUMIN 1.4 g/dL (3.5-5.0); ALBUMIN/GLOBULIN RATIO 0.3 (0.8-2.0); ANION GAP 14.4 mmol/L (8-16); CREATININE, SERUM 1.95 mg/dL (0.57-1.11); POTASSIUM 4.4 mmol/L (3.5-5.1)
[2020-03-31 07:15] LABS: BASOPHILS # (AUTO) 0.1 (0.0-0.1); BASOPHILS % 0.4 % (0.0-1.0); EOSINOPHILS # (AUTO) 0.2 (0.0-0.4); EOSINOPHILS % 1.5 % (0.0-6.0); HEMATOCRIT 27.5 % (34.2-44.1); HEMOGLOBIN 8.1 g/dL (12.0-16.0); LYMPHOCYTES # (AUTO) 0.9 (1.0-3.2); LYMPHOCYTES % 5.4 % (18.0-39.1); MEAN CORPUSCULAR HEMOGLOBIN 29.5 pg (28-32); MEAN CORPUSCULAR HGB CONC 29.5 g/dL (31-35); MONOCYTES # (AUTO) 0.5 (0.2-0.8); MONOCYTES % 3.3 % (4.4-11.3); NEUTROPHILS # (AUTO) 13.6 (2.1-6.9); NEUTROPHILS % 86.4 % (38.7-80.0); PLATELET COUNT 382 x10e3/uL (140-360); RED BLOOD COUNT 2.75 x10e6/uL (3.6-5.1); RED CELL DISTRIBUTION WIDTH 16.9 % (11.7-14.4)
[2020-03-31] MEDS: CITRIC ACID/SODIUM CITRATE 30 ML UDC PO SCH ×2 (08:57→17:58)
[2020-03-31] MEDS: BALSAM PERU/CASTOR OIL 60 GM OINT...G. TP SCH (08:57)
[2020-03-31] MEDS: PANTOPRAZOLE 40 MG 10ML VIAL IV SCH (08:57)
[2020-03-31] MEDS: CEFEPIME HCL 1GM 1 GM in SODIUM CHLORIDE 0.9% 50ML 50 ML IV SCH (12:59)
[2020-03-31] MEDS: ROCURONIUM BROMIDE 1,250 MG in SODIUM CHLORIDE 0.9% 250ML 125 ML IV SCH (13:27)
[2020-03-31] MEDS: VANCOMYCIN 1GM/NS 250 ML 250 ML IV SCH (13:34)
[2020-04-01] VITALS (22 sets, daily range): BP systolic 82–129; BP diastolic 41–84
[2020-04-01] MEDS: MIDAZOLAM HCL 5MG/ML 10ML VIAL 100 ML IV PRN ×3 (01:51→21:30)
[2020-04-01 05:36] LABS: BASOPHILS # (AUTO) 0.1 (0.0-0.1); BASOPHILS % 0.3 % (0.0-1.0); EOSINOPHILS # (AUTO) 0.2 (0.0-0.4); HEMATOCRIT 26.1 % (34.2-44.1); HEMOGLOBIN 7.4 g/dL (12.0-16.0); LYMPHOCYTES # (AUTO) 0.6 (1.0-3.2); LYMPHOCYTES % 4.2 % (18.0-39.1); MEAN CORPUSCULAR HEMOGLOBIN 29.4 pg (28-32); MEAN CORPUSCULAR HGB CONC 28.4 g/dL (31-35); MEAN CORPUSCULAR VOLUME 103.6 fL (81-99); MONOCYTES # (AUTO) 0.5 (0.2-0.8); MONOCYTES % 3.6 % (4.4-11.3); NEUTROPHILS # (AUTO) 12.8 (2.1-6.9); NEUTROPHILS % 86.1 % (38.7-80.0); PLATELET COUNT 393 x10e3/uL (140-360); RED BLOOD COUNT 2.52 x10e6/uL (3.6-5.1); RED CELL DISTRIBUTION WIDTH 16.6 % (11.7-14.4)
[2020-04-01 06:19] LABS: ALBUMIN 1.4 g/dL (3.5-5.0); ALBUMIN/GLOBULIN RATIO 0.3 (0.8-2.0); ANION GAP 20.1 mmol/L (8-16); CALCIUM 8.1 mg/dL (8.4-10.2); CREATININE, SERUM 2.54 mg/dL (0.57-1.11); POTASSIUM 5.1 mmol/L (3.5-5.1)
[2020-04-01] MEDS: NOREPINEPHRINE INJ 4MG/4ML 8 MG in DEXTROSE 5% 250ML 250 ML IV PRN (06:23)
[2020-04-01] MEDS: FENTANYL 2000MCG/NS 250 250 ML IV SCH ×2 (06:24→15:19)
[2020-04-01] MEDS: PANTOPRAZOLE 40 MG 10ML VIAL IV SCH (08:45)
[2020-04-01] MEDS: BALSAM PERU/CASTOR OIL 60 GM OINT...G. TP SCH (08:45)
[2020-04-01] MEDS: CITRIC ACID/SODIUM CITRATE 30 ML UDC PO SCH ×2 (08:45→17:17)
[2020-04-01] MEDS: ROCURONIUM BROMIDE 1,250 MG in SODIUM CHLORIDE 0.9% 250ML 125 ML IV SCH (12:15)
[2020-04-01] MEDS: VANCOMYCIN 1GM/NS 250 ML 250 ML IV SCH (12:48)
[2020-04-01] MEDS: CEFEPIME HCL 1GM 1 GM in SODIUM CHLORIDE 0.9% 50ML 50 ML IV SCH (12:52)
[2020-04-01] MEDS ORDERED: NYSTATIN 15 GM POWDER UD BTL TOP PRN (13:15)
[2020-04-01] MEDS ORDERED: HEPARIN SOD (PORCINE) 1000 UNIT/ML SDV IV PRN (14:00)
[2020-04-01] MEDS: FLUCONAZOLE 200 MG/100 ML 100 ML IV SCH (17:16)
[2020-04-01] MEDS: NYSTATIN 15 GM POWDER UD BTL TOP SCH (17:17)
[2020-04-02] VITALS (23 sets, daily range): BP systolic 100–125; BP diastolic 51–61
[2020-04-02] MEDS: FENTANYL 2000MCG/NS 250 250 ML IV SCH ×4 (06:42→22:45)
[2020-04-02] MEDS: BALSAM PERU/CASTOR OIL 60 GM OINT...G. TP SCH (08:13)
[2020-04-02] MEDS: NYSTATIN 15 GM POWDER UD BTL TOP SCH ×2 (08:13→13:54)
[2020-04-02] MEDS: CITRIC ACID/SODIUM CITRATE 30 ML UDC PO SCH ×2 (08:13→13:54)
[2020-04-02] MEDS: PANTOPRAZOLE 40 MG 10ML VIAL IV SCH (08:14)
[2020-04-02] MEDS: VANCOMYCIN 1GM/NS 250 ML 250 ML IV SCH (13:00)
[2020-04-02 13:18] LABS: ABG HCO3 29 mmol/L (22-26); ABG PCO2 63 mmHg (35-45); ABG PH 7.26 (7.35-7.45); ABG PO2 113 mmHg (80-105); ABG TCO2 30
[2020-04-02] MEDS: FLUCONAZOLE 200 MG/100 ML 100 ML IV SCH (13:54)
[2020-04-02] MEDS: CEFEPIME HCL 1GM 1 GM in SODIUM CHLORIDE 0.9% 50ML 50 ML IV SCH (13:54)
[2020-04-02] MEDS: ROCURONIUM BROMIDE 1,250 MG in SODIUM CHLORIDE 0.9% 250ML 125 ML IV SCH (21:21)
[2020-04-02] MEDS: MIDAZOLAM HCL 5MG/ML 10ML VIAL 100 ML IV PRN (22:45)
[2020-04-03] VITALS (26 sets, daily range): BP systolic 102–159; BP diastolic 53–72
[2020-04-03 06:00] LABS: BASOPHILS # (AUTO) 0.1 (0.0-0.1); BASOPHILS % 0.6 % (0.0-1.0); EOSINOPHILS # (AUTO) 0.2 (0.0-0.4); EOSINOPHILS % 1.7 % (0.0-6.0); HEMATOCRIT 23.3 % (34.2-44.1); LYMPHOCYTES # (AUTO) 0.6 (1.0-3.2); LYMPHOCYTES % 6.2 % (18.0-39.1); MEAN CORPUSCULAR HEMOGLOBIN 29.7 pg (28-32); MEAN CORPUSCULAR HGB CONC 29.2 g/dL (31-35); MEAN CORPUSCULAR VOLUME 101.7 fL (81-99); MONOCYTES # (AUTO) 0.6 (0.2-0.8); MONOCYTES % 5.5 % (4.4-11.3); NEUTROPHILS # (AUTO) 8.5 (2.1-6.9); NEUTROPHILS % 82.9 % (38.7-80.0); PLATELET COUNT 323 x10e3/uL (140-360); RED BLOOD COUNT 2.29 x10e6/uL (3.6-5.1); RED CELL DISTRIBUTION WIDTH 16.9 % (11.7-14.4)
[2020-04-03 06:06] LABS: HEMOGLOBIN 6.8 g/dL (12.0-16.0)
[2020-04-03 06:35] LABS: ALBUMIN 1.3 g/dL (3.5-5.0); ALBUMIN/GLOBULIN RATIO 0.3 (0.8-2.0); ANION GAP 14.6 mmol/L (8-16); CALCIUM 7.7 mg/dL (8.4-10.2); CREATININE, SERUM 2.42 mg/dL (0.57-1.11); POTASSIUM 4.6 mmol/L (3.5-5.1)
[2020-04-03] MEDS ORDERED: SODIUM CHLORIDE 0.9% 250ML 250 ML IV SCH (07:00)
[2020-04-03] MEDS: NYSTATIN 15 GM POWDER UD BTL TOP SCH ×2 (07:24→16:59)
[2020-04-03] MEDS: CITRIC ACID/SODIUM CITRATE 30 ML UDC PO SCH ×2 (07:24→16:59)
[2020-04-03] MEDS: PANTOPRAZOLE 40 MG 10ML VIAL IV SCH ×2 (07:24→16:59)
[2020-04-03] MEDS: BALSAM PERU/CASTOR OIL 60 GM OINT...G. TP SCH ×2 (07:24→16:59)
[2020-04-03] MEDS ORDERED: VANCOMYCIN HCL 1 GM in SODIUM CHLORIDE 0.9% 250ML 250 ML IV SCH (10:15)
[2020-04-03] MEDS: FLUCONAZOLE 200 MG/100 ML 100 ML IV SCH ×2 (14:33→16:59)
[2020-04-03] MEDS: CEFEPIME HCL 1GM 1 GM in SODIUM CHLORIDE 0.9% 50ML 50 ML IV SCH ×2 (14:33→16:59)
[2020-04-03 16:35] LABS: ABG HCO3 27 mmol/L (22-26); ABG PCO2 71 mmHg (35-45); ABG PH 7.19 (7.35-7.45); ABG PO2 79 mmHg (80-105); ABG TCO2 29
[2020-04-03] MEDS ORDERED: SODIUM CHLORIDE 0.9% 1000ML 2,000 ML ONE (20:43)
[2020-04-03] MEDS ORDERED: HEPARIN SOD (PORCINE) 1000 UNIT/ML SDV ONE (20:44)
[2020-04-03] MEDS: ROCURONIUM BROMIDE 1,250 MG in SODIUM CHLORIDE 0.9% 250ML 125 ML IV SCH (21:05)
[2020-04-04] VITALS (18 sets, daily range): BP systolic 96–132; BP diastolic 49–68
[2020-04-04 06:23] LABS: BASOPHILS # (AUTO) 0.1 (0.0-0.1); BASOPHILS % 0.7 % (0.0-1.0); EOSINOPHILS # (AUTO) 0.1 (0.0-0.4); EOSINOPHILS % 0.8 % (0.0-6.0); HEMOGLOBIN 8.7 g/dL (12.0-16.0); LYMPHOCYTES # (AUTO) 0.6 (1.0-3.2); LYMPHOCYTES % 4.2 % (18.0-39.1); MEAN CORPUSCULAR HEMOGLOBIN 29.3 pg (28-32); MONOCYTES # (AUTO) 0.6 (0.2-0.8); MONOCYTES % 4.7 % (4.4-11.3); NEUTROPHILS # (AUTO) 11.6 (2.1-6.9); NEUTROPHILS % 86.7 % (38.7-80.0); PLATELET COUNT 303 x10e3/uL (140-360); RED BLOOD COUNT 2.97 x10e6/uL (3.6-5.1); RED CELL DISTRIBUTION WIDTH 17.7 % (11.7-14.4)
[2020-04-04 06:42] LABS: ALBUMIN 1.5 g/dL (3.5-5.0); ALBUMIN/GLOBULIN RATIO 0.4 (0.8-2.0); ANION GAP 12.5 mmol/L (8-16); CREATININE, SERUM 1.93 mg/dL (0.57-1.11); POTASSIUM 4.5 mmol/L (3.5-5.1)
[2020-04-04] MEDS: CITRIC ACID/SODIUM CITRATE 30 ML UDC PO SCH ×2 (08:54→18:02)
[2020-04-04] MEDS: NYSTATIN 15 GM POWDER UD BTL TOP SCH ×2 (08:54→18:03)
[2020-04-04] MEDS: PANTOPRAZOLE 40 MG 10ML VIAL IV SCH (08:55)
[2020-04-04] MEDS ORDERED: BALSAM PERU/CASTOR OIL 60 GM OINT...G. TP SCH (09:00)
[2020-04-04] MEDS: FENTANYL 2000MCG/NS 250 250 ML IV SCH (10:30)
[2020-04-04] MEDS: MIDAZOLAM HCL 5MG/ML 10ML VIAL 100 ML IV PRN (20:00)
[2020-04-04] MEDS: ROCURONIUM BROMIDE 1,250 MG in SODIUM CHLORIDE 0.9% 250ML 125 ML IV SCH (20:11)
[2020-04-05] VITALS (17 sets, daily range): BP systolic 96–125; BP diastolic 49–60
[2020-04-05 06:13] LABS: BASOPHILS % 0.4 % (0.0-1.0); EOSINOPHILS # (AUTO) 0.1 (0.0-0.4); EOSINOPHILS % 0.6 % (0.0-6.0); HEMOGLOBIN 7.9 g/dL (12.0-16.0); LYMPHOCYTES # (AUTO) 0.5 (1.0-3.2); LYMPHOCYTES % 4.8 % (18.0-39.1); MEAN CORPUSCULAR HEMOGLOBIN 29.3 pg (28-32); MEAN CORPUSCULAR HGB CONC 29.3 g/dL (31-35); MONOCYTES # (AUTO) 0.5 (0.2-0.8); NEUTROPHILS # (AUTO) 9.3 (2.1-6.9); NEUTROPHILS % 86.1 % (38.7-80.0); PLATELET COUNT 300 x10e3/uL (140-360); RED CELL DISTRIBUTION WIDTH 17.3 % (11.7-14.4)
[2020-04-05 06:26] LABS: ALBUMIN 1.4 g/dL (3.5-5.0); ALBUMIN/GLOBULIN RATIO 0.3 (0.8-2.0); ANION GAP 15.9 mmol/L (8-16); CALCIUM 7.9 mg/dL (8.4-10.2); CREATININE, SERUM 2.44 mg/dL (0.57-1.11); POTASSIUM 4.9 mmol/L (3.5-5.1)
[2020-04-05] MEDS: NYSTATIN 15 GM POWDER UD BTL TOP SCH ×2 (07:46→18:34)
[2020-04-05] MEDS: BALSAM PERU/CASTOR OIL 60 GM OINT...G. TP SCH (07:46)
[2020-04-05] MEDS: CITRIC ACID/SODIUM CITRATE 30 ML UDC PO SCH ×2 (07:46→18:33)
[2020-04-05] MEDS: PANTOPRAZOLE 40 MG 10ML VIAL IV SCH (07:46)
[2020-04-05] MEDS: FENTANYL 2000MCG/NS 250 250 ML IV SCH (08:45)
[2020-04-05] MEDS: METOCLOPRAMIDE HCL 10 MG/2ML VIAL IV SCH ×3 (11:22→23:08)
[2020-04-05] MEDS: ROCURONIUM BROMIDE 1,250 MG in SODIUM CHLORIDE 0.9% 250ML 125 ML IV SCH (12:15)
[2020-04-05 16:40] LABS: ABG HCO3 29 mmol/L (22-26); ABG PCO2 70 mmHg (35-45); ABG PH 7.22 (7.35-7.45); ABG PO2 154 mmHg (80-105); ABG TCO2 31
[2020-04-05] MEDS: FLUCONAZOLE 200 MG/100 ML 100 ML IV SCH (18:33)
[2020-04-05] MEDS: CEFEPIME HCL 1GM 1 GM in SODIUM CHLORIDE 0.9% 50ML 50 ML IV SCH (18:33)
[2020-04-06] VITALS (18 sets, daily range): BP systolic 107–129; BP diastolic 38–78
[2020-04-06] MEDS: FENTANYL 2000MCG/NS 250 250 ML IV SCH (00:33)
[2020-04-06] MEDS: METOCLOPRAMIDE HCL 10 MG/2ML VIAL IV SCH ×3 (05:11→16:36)
[2020-04-06 06:32] LABS: BASOPHILS # (AUTO) 0.1 (0.0-0.1); BASOPHILS % 0.5 % (0.0-1.0); EOSINOPHILS # (AUTO) 0.2 (0.0-0.4); EOSINOPHILS % 1.6 % (0.0-6.0); HEMATOCRIT 27.7 % (34.2-44.1); HEMOGLOBIN 8.1 g/dL (12.0-16.0); LYMPHOCYTES # (AUTO) 0.6 (1.0-3.2); LYMPHOCYTES % 5.3 % (18.0-39.1); MEAN CORPUSCULAR HEMOGLOBIN 29.5 pg (28-32); MEAN CORPUSCULAR HGB CONC 29.2 g/dL (31-35); MEAN CORPUSCULAR VOLUME 100.7 fL (81-99); MONOCYTES # (AUTO) 0.5 (0.2-0.8); MONOCYTES % 4.8 % (4.4-11.3); NEUTROPHILS # (AUTO) 9.4 (2.1-6.9); NEUTROPHILS % 85.9 % (38.7-80.0); PLATELET COUNT 257 x10e3/uL (140-360); RED BLOOD COUNT 2.75 x10e6/uL (3.6-5.1); RED CELL DISTRIBUTION WIDTH 17.5 % (11.7-14.4)
[2020-04-06 06:51] LABS: ALBUMIN 1.5 g/dL (3.5-5.0); ALBUMIN/GLOBULIN RATIO 0.3 (0.8-2.0); ANION GAP 15.5 mmol/L (8-16); CALCIUM 7.9 mg/dL (8.4-10.2); CREATININE, SERUM 2.51 mg/dL (0.57-1.11); POTASSIUM 4.5 mmol/L (3.5-5.1)
[2020-04-06] MEDS: CITRIC ACID/SODIUM CITRATE 30 ML UDC PO SCH ×2 (08:23→16:37)
[2020-04-06] MEDS: PANTOPRAZOLE 40 MG 10ML VIAL IV SCH (08:23)
[2020-04-06] MEDS: NYSTATIN 15 GM POWDER UD BTL TOP SCH ×2 (08:23→16:37)
[2020-04-06] MEDS: BALSAM PERU/CASTOR OIL 60 GM OINT...G. TP SCH (08:23)
[2020-04-06 09:10] LABS: BAND NEUTROPHILS % (MANUAL) 4 %; EOSINOPHILS % (MANUAL) 1 % (0-7); LYMPHOCYTES % (MANUAL) 6 % (19-48); MONOCYTES % (MANUAL) 3 % (3.4-9.0); NEUTROPHILS % (MANUAL) 86 % (40-74)
[2020-04-06] MEDS: ROCURONIUM BROMIDE 1,250 MG in SODIUM CHLORIDE 0.9% 250ML 125 ML IV SCH (12:15)
[2020-04-06] MEDS: CEFEPIME HCL 1GM 1 GM in SODIUM CHLORIDE 0.9% 50ML 50 ML IV SCH (12:30)
[2020-04-06] MEDS: FLUCONAZOLE 200 MG/100 ML 100 ML IV SCH (14:00)
[2020-04-06] MEDS: TERCONAZOLE VG SCH (20:26)
[2020-04-06] MEDS ORDERED: MICONAZOLE NITRATE 45 GM CR VG SCH (21:00)
[2020-04-06] MEDS: MIDAZOLAM HCL 5MG/ML 10ML VIAL 100 ML IV PRN (23:18)
[2020-04-07] VITALS (20 sets, daily range): BP systolic 91–115; BP diastolic 42–69
[2020-04-07] MEDS: FENTANYL 2000MCG/NS 250 250 ML IV SCH (03:44)
[2020-04-07] MEDS: MIDAZOLAM HCL 5MG/ML 10ML VIAL 100 ML IV PRN ×2 (03:45→20:01)
[2020-04-07] MEDS: METOCLOPRAMIDE HCL 10 MG/2ML VIAL IV SCH ×5 (06:28→23:58)
[2020-04-07] MEDS: BALSAM PERU/CASTOR OIL 60 GM OINT...G. TP SCH (08:18)
[2020-04-07] MEDS: CITRIC ACID/SODIUM CITRATE 30 ML UDC PO SCH ×2 (08:18→18:28)
[2020-04-07] MEDS: NYSTATIN 15 GM POWDER UD BTL TOP SCH ×2 (08:18→18:28)
[2020-04-07] MEDS: PANTOPRAZOLE 40 MG 10ML VIAL IV SCH (08:18)
[2020-04-07 08:19] LABS: BASOPHILS % 0.3 % (0.0-1.0); EOSINOPHILS # (AUTO) 0.1 (0.0-0.4); EOSINOPHILS % 0.9 % (0.0-6.0); HEMATOCRIT 25.8 % (34.2-44.1); HEMOGLOBIN 7.3 g/dL (12.0-16.0); LYMPHOCYTES # (AUTO) 0.4 (1.0-3.2); LYMPHOCYTES % 3.6 % (18.0-39.1); MEAN CORPUSCULAR HEMOGLOBIN 29.2 pg (28-32); MEAN CORPUSCULAR HGB CONC 28.3 g/dL (31-35); MEAN CORPUSCULAR VOLUME 103.2 fL (81-99); MONOCYTES # (AUTO) 0.4 (0.2-0.8); MONOCYTES % 3.8 % (4.4-11.3); NEUTROPHILS # (AUTO) 9.8 (2.1-6.9); NEUTROPHILS % 89.9 % (38.7-80.0); PLATELET COUNT 217 x10e3/uL (140-360); RED CELL DISTRIBUTION WIDTH 17.5 % (11.7-14.4)
[2020-04-07 08:45] LABS: ALBUMIN 1.4 g/dL (3.5-5.0); ALBUMIN/GLOBULIN RATIO 0.3 (0.8-2.0); ANION GAP 16.2 mmol/L (8-16); CALCIUM 7.9 mg/dL (8.4-10.2); CREATININE, SERUM 2.9 mg/dL (0.57-1.11)
[2020-04-07 08:58] LABS: POTASSIUM 5.2 mmol/L (3.5-5.1)
[2020-04-07] MEDS: CEFEPIME HCL 1GM 1 GM in SODIUM CHLORIDE 0.9% 50ML 50 ML IV SCH (12:09)
[2020-04-07] MEDS ORDERED: MIDAZOLAM HCL 5MG/ML 10ML VIAL 100 ML BAG IV ONE (13:17)
[2020-04-07] MEDS ORDERED: FENTANYL 2,000 MCG/250 ML BAG ONE (13:17)
[2020-04-07] MEDS: FLUCONAZOLE 200 MG/100 ML 100 ML IV SCH (18:28)
[2020-04-07] MEDS: TERCONAZOLE VG SCH (18:28)
[2020-04-07] MEDS: NOREPINEPHRINE INJ 4MG/4ML 8 MG in DEXTROSE 5% 250ML 250 ML IV PRN (22:24)
[2020-04-08] VITALS (25 sets, daily range): BP systolic 98–121; BP diastolic 45–57
[2020-04-08] MEDS: FENTANYL 2000MCG/NS 250 250 ML IV SCH ×2 (01:13→22:31)
[2020-04-08] MEDS: MIDAZOLAM HCL 5MG/ML 10ML VIAL 100 ML IV PRN ×3 (01:15→22:33)
[2020-04-08 05:53] LABS: BASOPHILS % 0.4 % (0.0-1.0); EOSINOPHILS # (AUTO) 0.1 (0.0-0.4); EOSINOPHILS % 1.5 % (0.0-6.0); HEMATOCRIT 23.1 % (34.2-44.1); LYMPHOCYTES # (AUTO) 0.6 (1.0-3.2); LYMPHOCYTES % 5.9 % (18.0-39.1); MEAN CORPUSCULAR HEMOGLOBIN 29.2 pg (28-32); MEAN CORPUSCULAR HGB CONC 29.4 g/dL (31-35); MEAN CORPUSCULAR VOLUME 99.1 fL (81-99); MONOCYTES # (AUTO) 0.4 (0.2-0.8); MONOCYTES % 3.7 % (4.4-11.3); NEUTROPHILS # (AUTO) 8.3 (2.1-6.9); NEUTROPHILS % 87.4 % (38.7-80.0); PLATELET COUNT 238 x10e3/uL (140-360); RED BLOOD COUNT 2.33 x10e6/uL (3.6-5.1); RED CELL DISTRIBUTION WIDTH 17.6 % (11.7-14.4)
[2020-04-08 06:12] LABS: HEMOGLOBIN 6.8 g/dL (12.0-16.0)
[2020-04-08 06:25] LABS: CALCIUM 7.6 mg/dL (8.4-10.2); CREATININE, SERUM 1.96 mg/dL (0.57-1.11)
[2020-04-08] MEDS: METOCLOPRAMIDE HCL 10 MG/2ML VIAL IV SCH ×3 (06:27→16:58)
[2020-04-08] MEDS ORDERED: SODIUM CHLORIDE 0.9% 250ML 250 ML IV ONE (07:45)
[2020-04-08 08:55] LABS: ANISOCYTOSIS SLIGHT; EOSINOPHILS % (MANUAL) 1 % (0-7); LYMPHOCYTES % (MANUAL) 2 % (19-48); MONOCYTES % (MANUAL) 3 % (3.4-9.0); NEUTROPHILS % (MANUAL) 94 % (40-74); PLATELET ESTIMATE ADEQUATE
[2020-04-08 08:56] LABS: RBC MORPHOLOGY COMMENT NORMAL
[2020-04-08 08:57] LABS: PLATELET MORPHOLOGY COMMENT FEW LARGE
[2020-04-08] MEDS: CITRIC ACID/SODIUM CITRATE 30 ML UDC PO SCH ×2 (09:03→16:58)
[2020-04-08] MEDS: BALSAM PERU/CASTOR OIL 60 GM OINT...G. TP SCH (09:04)
[2020-04-08] MEDS: NYSTATIN 15 GM POWDER UD BTL TOP SCH ×2 (09:04→16:58)
[2020-04-08] MEDS ORDERED: HEPARIN SOD (PORCINE) 1000 UNIT/ML SDV IV PRN (11:45)
[2020-04-08] MEDS: ROCURONIUM BROMIDE 1,250 MG in SODIUM CHLORIDE 0.9% 250ML 125 ML IV SCH (12:15)
[2020-04-08] MEDS: FLUCONAZOLE 200 MG/100 ML 100 ML IV SCH (14:21)
[2020-04-08] MEDS: PANTOPRAZOLE 40 MG 10ML VIAL IV SCH (14:21)
[2020-04-08] MEDS: CEFEPIME HCL 1GM 1 GM in SODIUM CHLORIDE 0.9% 50ML 50 ML IV SCH (14:21)
[2020-04-08 15:25] LABS: ABG PCO2 70 mmHg (35-45); ABG PH 7.23 (7.35-7.45); ABG PO2 79 mmHg (80-105)
[2020-04-08 15:26] LABS: ABG HCO3 29 mmol/L (22-26); ABG TCO2 31
[2020-04-08 17:07] LABS: ABG HCO3 29 mmol/L (22-26); ABG PCO2 61 mmHg (35-45); ABG PH 7.28 (7.35-7.45); ABG PO2 76 mmHg (80-105); ABG TCO2 30
[2020-04-08] MEDS: TERCONAZOLE VG SCH (21:20)
[2020-04-09] VITALS (24 sets, daily range): BP systolic 100–132; BP diastolic 45–63
[2020-04-09] MEDS: ROCURONIUM BROMIDE 1,250 MG in SODIUM CHLORIDE 0.9% 250ML 125 ML IV SCH ×2 (00:04→12:15)
[2020-04-09] MEDS: METOCLOPRAMIDE HCL 10 MG/2ML VIAL IV SCH ×4 (00:05→16:26)
[2020-04-09] MEDS: MIDAZOLAM HCL 5MG/ML 10ML VIAL 100 ML IV PRN ×2 (03:26→21:00)
[2020-04-09] MEDS: FENTANYL 2000MCG/NS 250 250 ML IV SCH (05:49)
[2020-04-09] MEDS: PANTOPRAZOLE 40 MG 10ML VIAL IV SCH (09:03)
[2020-04-09] MEDS: CITRIC ACID/SODIUM CITRATE 30 ML UDC PO SCH ×2 (09:04→16:26)
[2020-04-09] MEDS: NYSTATIN 15 GM POWDER UD BTL TOP SCH ×2 (09:04→16:26)
[2020-04-09] MEDS: BALSAM PERU/CASTOR OIL 60 GM OINT...G. TP SCH (09:04)
[2020-04-09 10:46] LABS: ABG HCO3 23 mmol/L (22-26); ABG OXYGEN SATURATION 97.5 % (95-98); ABG PCO2 53 mmHg (35-45); ABG PH 7.26 (7.35-7.45); ABG PO2 115 mmHg (80-105); ABG TCO2 24.8
[2020-04-09 11:46] LABS: HEMATOCRIT 26.4 % (34.2-44.1); HEMOGLOBIN 8.1 g/dL (12.0-16.0)
[2020-04-09 12:11] LABS: ALBUMIN 1.4 g/dL (3.5-5.0); ALBUMIN/GLOBULIN RATIO 0.3 (0.8-2.0); ANION GAP 14.1 mmol/L (8-16); CALCIUM 7.6 mg/dL (8.4-10.2); CREATININE, SERUM 2.3 mg/dL (0.57-1.11); POTASSIUM 4.1 mmol/L (3.5-5.1)
[2020-04-09] MEDS: CEFEPIME HCL 1GM 1 GM in SODIUM CHLORIDE 0.9% 50ML 50 ML IV SCH (12:21)
[2020-04-09] MEDS: FLUCONAZOLE 200 MG/100 ML 100 ML IV SCH (12:21)
[2020-04-09] MEDS: TERCONAZOLE VG SCH (21:19)
[2020-04-09] MEDS: NOREPINEPHRINE INJ 4MG/4ML 8 MG in DEXTROSE 5% 250ML 250 ML IV PRN (22:01)
[2020-04-10] VITALS (24 sets, daily range): BP systolic 98–132; BP diastolic 53–65
[2020-04-10] MEDS: METOCLOPRAMIDE HCL 10 MG/2ML VIAL IV SCH ×5 (00:42→23:45)
[2020-04-10] MEDS: MIDAZOLAM HCL 5MG/ML 10ML VIAL 100 ML IV PRN ×3 (01:00→20:25)
[2020-04-10] MEDS: FENTANYL 2000MCG/NS 250 250 ML IV SCH ×2 (01:24→23:00)
[2020-04-10 06:39] LABS: BASOPHILS # (AUTO) 0.1 (0.0-0.1); BASOPHILS % 0.6 % (0.0-1.0); EOSINOPHILS # (AUTO) 0.2 (0.0-0.4); EOSINOPHILS % 1.8 % (0.0-6.0); HEMATOCRIT 24.2 % (34.2-44.1); HEMOGLOBIN 7.4 g/dL (12.0-16.0); LYMPHOCYTES # (AUTO) 0.5 (1.0-3.2); LYMPHOCYTES % 5.5 % (18.0-39.1); MEAN CORPUSCULAR HEMOGLOBIN 30.2 pg (28-32); MEAN CORPUSCULAR HGB CONC 30.6 g/dL (31-35); MEAN CORPUSCULAR VOLUME 98.8 fL (81-99); MONOCYTES # (AUTO) 0.3 (0.2-0.8); MONOCYTES % 3.3 % (4.4-11.3); NEUTROPHILS # (AUTO) 7.1 (2.1-6.9); NEUTROPHILS % 87.1 % (38.7-80.0); PLATELET COUNT 187 x10e3/uL (140-360); RED BLOOD COUNT 2.45 x10e6/uL (3.6-5.1); RED CELL DISTRIBUTION WIDTH 17.6 % (11.7-14.4)
[2020-04-10 06:57] LABS: ANION GAP 12.7 mmol/L (8-16); CALCIUM 7.4 mg/dL (8.4-10.2); CREATININE, SERUM 1.53 mg/dL (0.57-1.11); POTASSIUM 3.7 mmol/L (3.5-5.1)
[2020-04-10 08:52] LABS: EOSINOPHILS % (MANUAL) 3 % (0-7); LYMPHOCYTES % (MANUAL) 5 % (19-48); MONOCYTES % (MANUAL) 1 % (3.4-9.0); NEUTROPHILS % (MANUAL) 91 % (40-74)
[2020-04-10 08:53] LABS: ANISOCYTOSIS SLIGHT; PLATELET ESTIMATE ADEQUATE; PLATELET MORPHOLOGY COMMENT RARE EDTA CLUMPING
[2020-04-10 08:54] LABS: RBC MORPHOLOGY COMMENT ABNORMAL
[2020-04-10] MEDS: PANTOPRAZOLE 40 MG 10ML VIAL IV SCH (09:30)
[2020-04-10] MEDS: CITRIC ACID/SODIUM CITRATE 30 ML UDC PO SCH ×2 (09:30→17:56)
[2020-04-10] MEDS: NYSTATIN 15 GM POWDER UD BTL TOP SCH (09:30)
[2020-04-10] MEDS: BALSAM PERU/CASTOR OIL 60 GM OINT...G. TP SCH (09:30)
[2020-04-10] MEDS: ROCURONIUM BROMIDE 1,250 MG in SODIUM CHLORIDE 0.9% 250ML 125 ML IV SCH (12:15)
[2020-04-10] MEDS ORDERED: FENTANYL 2,000 MCG/250 ML BAG ONE (13:21)
[2020-04-10] MEDS ORDERED: MIDAZOLAM HCL 5MG/ML 10ML VIAL 100 ML BAG IV ONE (13:21)
[2020-04-10] MEDS: FLUCONAZOLE 200 MG/100 ML 100 ML IV SCH (14:24)
[2020-04-10] MEDS: CEFEPIME HCL 1GM 1 GM in SODIUM CHLORIDE 0.9% 50ML 50 ML IV SCH (14:24)
[2020-04-10] MEDS: GENTAMICIN SULFATE 0.3% OPTH OINT 3.5GM TUBE OP SCH ×3 (17:56→20:18)
[2020-04-10] MEDS: TERCONAZOLE VG SCH (19:31)
[2020-04-11] VITALS (25 sets, daily range): BP systolic 89–127; BP diastolic 44–83
[2020-04-11] MEDS: MIDAZOLAM HCL 5MG/ML 10ML VIAL 100 ML IV PRN ×5 (01:59→23:30)
[2020-04-11] MEDS: FENTANYL 2000MCG/NS 250 250 ML IV SCH ×3 (05:47→18:10)
[2020-04-11] MEDS: METOCLOPRAMIDE HCL 10 MG/2ML VIAL IV SCH ×3 (05:47→17:22)
[2020-04-11 06:19] LABS: BASOPHILS % 0.4 % (0.0-1.0); EOSINOPHILS # (AUTO) 0.2 (0.0-0.4); EOSINOPHILS % 1.7 % (0.0-6.0); HEMATOCRIT 25.1 % (34.2-44.1); HEMOGLOBIN 7.4 g/dL (12.0-16.0); LYMPHOCYTES # (AUTO) 0.6 (1.0-3.2); LYMPHOCYTES % 5.7 % (18.0-39.1); MEAN CORPUSCULAR HEMOGLOBIN 29.2 pg (28-32); MEAN CORPUSCULAR HGB CONC 29.5 g/dL (31-35); MEAN CORPUSCULAR VOLUME 99.2 fL (81-99); MONOCYTES # (AUTO) 0.3 (0.2-0.8); MONOCYTES % 3.4 % (4.4-11.3); NEUTROPHILS # (AUTO) 8.7 (2.1-6.9); NEUTROPHILS % 87.4 % (38.7-80.0); PLATELET COUNT 141 x10e3/uL (140-360); RED BLOOD COUNT 2.53 x10e6/uL (3.6-5.1); RED CELL DISTRIBUTION WIDTH 17.7 % (11.7-14.4)
[2020-04-11 06:54] LABS: ALBUMIN 1.3 g/dL (3.5-5.0); ALBUMIN/GLOBULIN RATIO 0.3 (0.8-2.0); ANION GAP 13.6 mmol/L (8-16); CALCIUM 7.6 mg/dL (8.4-10.2); CREATININE, SERUM 1.86 mg/dL (0.57-1.11); POTASSIUM 4.6 mmol/L (3.5-5.1)
[2020-04-11] MEDS: ROCURONIUM BROMIDE 1,250 MG in SODIUM CHLORIDE 0.9% 250ML 125 ML IV SCH (07:39)
[2020-04-11] MEDS: PANTOPRAZOLE 40 MG 10ML VIAL IV SCH (09:02)
[2020-04-11] MEDS: GENTAMICIN SULFATE 0.3% OPTH OINT 3.5GM TUBE OP SCH ×4 (09:02→22:08)
[2020-04-11] MEDS: CITRIC ACID/SODIUM CITRATE 30 ML UDC PO SCH ×2 (09:02→16:13)
[2020-04-11] MEDS: BALSAM PERU/CASTOR OIL 60 GM OINT...G. TP SCH (09:02)
[2020-04-11] MEDS: CEFEPIME HCL 1GM 1 GM in SODIUM CHLORIDE 0.9% 50ML 50 ML IV SCH (11:42)
[2020-04-11 15:44] LABS: ABG PCO2 81 mmHg (35-45)
[2020-04-11 15:45] LABS: ABG HCO3 31 mmol/L (22-26); ABG PO2 96 mmHg (80-105); ABG TCO2 34
[2020-04-11] MEDS: TERCONAZOLE VG SCH (22:08)
[2020-04-11] MEDS: NOREPINEPHRINE INJ 4MG/4ML 8 MG in DEXTROSE 5% 250ML 250 ML IV PRN (23:29)
[2020-04-12] VITALS (20 sets, daily range): BP systolic 104–130; BP diastolic 53–89
[2020-04-12] MEDS: METOCLOPRAMIDE HCL 10 MG/2ML VIAL IV SCH ×4 (00:40→17:21)
[2020-04-12] MEDS: FENTANYL 2000MCG/NS 250 250 ML IV SCH ×4 (01:51→22:00)
[2020-04-12] MEDS: MIDAZOLAM HCL 5MG/ML 10ML VIAL 100 ML IV PRN ×4 (03:14→20:39)
[2020-04-12] MEDS: ROCURONIUM BROMIDE 1,250 MG in SODIUM CHLORIDE 0.9% 250ML 125 ML IV SCH (04:01)
[2020-04-12 06:29] LABS: BASOPHILS # (AUTO) 0.1 (0.0-0.1); BASOPHILS % 0.4 % (0.0-1.0); EOSINOPHILS # (AUTO) 0.1 (0.0-0.4); EOSINOPHILS % 1.1 % (0.0-6.0); HEMATOCRIT 24.3 % (34.2-44.1); HEMOGLOBIN 7.1 g/dL (12.0-16.0); LYMPHOCYTES # (AUTO) 0.8 (1.0-3.2); LYMPHOCYTES % 7.1 % (18.0-39.1); MEAN CORPUSCULAR HGB CONC 29.2 g/dL (31-35); MEAN CORPUSCULAR VOLUME 102.5 fL (81-99); MONOCYTES # (AUTO) 0.7 (0.2-0.8); NEUTROPHILS # (AUTO) 9.6 (2.1-6.9); NEUTROPHILS % 83.6 % (38.7-80.0); PLATELET COUNT 191 x10e3/uL (140-360); RED BLOOD COUNT 2.37 x10e6/uL (3.6-5.1); RED CELL DISTRIBUTION WIDTH 18.5 % (11.7-14.4)
[2020-04-12 06:45] LABS: ALBUMIN 1.4 g/dL (3.5-5.0); ALBUMIN/GLOBULIN RATIO 0.3 (0.8-2.0); ANION GAP 13.8 mmol/L (8-16); CALCIUM 7.7 mg/dL (8.4-10.2); CREATININE, SERUM 1.5 mg/dL (0.57-1.11); POTASSIUM 4.8 mmol/L (3.5-5.1)
[2020-04-12 07:01] LABS: MAGNESIUM 1.9 MG/DL (1.3-2.1); PHOSPHORUS 3.5 MG/DL (2.3-4.7)
[2020-04-12] MEDS: GENTAMICIN SULFATE 0.3% OPTH OINT 3.5GM TUBE OP SCH ×4 (08:32→22:04)
[2020-04-12] MEDS: CITRIC ACID/SODIUM CITRATE 30 ML UDC PO SCH ×2 (08:32→16:15)
[2020-04-12] MEDS: PANTOPRAZOLE 40 MG 10ML VIAL IV SCH (08:32)
[2020-04-12] MEDS: BALSAM PERU/CASTOR OIL 60 GM OINT...G. TP SCH (08:33)
[2020-04-12] MEDS: CEFEPIME HCL 1GM 1 GM in SODIUM CHLORIDE 0.9% 50ML 50 ML IV SCH (12:03)
[2020-04-12] MEDS ORDERED: HEPARIN 25,000 UNIT/D5W 250ML 250 ML IV SCH (12:30)
[2020-04-12] MEDS: HEPARIN 25,000 UNIT/D5W 250ML 250 ML IV SCH (14:06)
[2020-04-12 15:18] LABS: ABG HCO3 31 mmol/L (22-26); ABG PCO2 100 mmHg (35-45); ABG PH 7.09 (7.35-7.45); ABG PO2 65 mmHg (80-105); ABG TCO2 34
[2020-04-12] MEDS: NOREPINEPHRINE INJ 4MG/4ML 8 MG in DEXTROSE 5% 250ML 250 ML IV PRN (20:37)
[2020-04-12] MEDS ORDERED: ENOXAPARIN SOD INJ 40 MG/0.4 ML SYR SC SCH (21:00)
[2020-04-12] MEDS: TERCONAZOLE VG SCH (22:04)
[2020-04-13] VITALS (24 sets, daily range): BP systolic 94–141; BP diastolic 36–70
[2020-04-13] MEDS: METOCLOPRAMIDE HCL 10 MG/2ML VIAL IV SCH ×4 (02:33→17:40)
[2020-04-13] MEDS: MIDAZOLAM HCL 5MG/ML 10ML VIAL 100 ML IV PRN ×2 (02:33→15:53)
[2020-04-13] MEDS: ROCURONIUM BROMIDE 1,250 MG in SODIUM CHLORIDE 0.9% 250ML 125 ML IV SCH (02:57)
[2020-04-13] MEDS: FENTANYL 2000MCG/NS 250 250 ML IV SCH (06:21)
[2020-04-13 06:28] LABS: BASOPHILS # (AUTO) 0.1 (0.0-0.1); BASOPHILS % 0.4 % (0.0-1.0); EOSINOPHILS # (AUTO) 0.1 (0.0-0.4); HEMATOCRIT 24.7 % (34.2-44.1); HEMOGLOBIN 7.3 g/dL (12.0-16.0); LYMPHOCYTES % 7.7 % (18.0-39.1); MEAN CORPUSCULAR HEMOGLOBIN 31.7 pg (28-32); MEAN CORPUSCULAR HGB CONC 29.6 g/dL (31-35); MEAN CORPUSCULAR VOLUME 107.4 fL (81-99); MONOCYTES # (AUTO) 0.7 (0.2-0.8); MONOCYTES % 5.1 % (4.4-11.3); NEUTROPHILS # (AUTO) 11.1 (2.1-6.9); NEUTROPHILS % 82.8 % (38.7-80.0); PLATELET COUNT 207 x10e3/uL (140-360); RED CELL DISTRIBUTION WIDTH 18.9 % (11.7-14.4)
[2020-04-13 07:05] LABS: ANION GAP 18.6 mmol/L (8-16); CREATININE, SERUM 1.87 mg/dL (0.57-1.11); POTASSIUM 5.6 mmol/L (3.5-5.1)
[2020-04-13] MEDS: BALSAM PERU/CASTOR OIL 60 GM OINT...G. TP SCH (08:46)
[2020-04-13] MEDS: GENTAMICIN SULFATE 0.3% OPTH OINT 3.5GM TUBE OP SCH ×4 (08:46→21:00)
[2020-04-13] MEDS: CITRIC ACID/SODIUM CITRATE 30 ML UDC PO SCH ×2 (08:46→16:49)
[2020-04-13] MEDS ORDERED: FUROSEMIDE INJ 10 MG/ML 4 ML VIAL IV ONE (11:30)
[2020-04-13] MEDS: CEFEPIME HCL 1GM 1 GM in SODIUM CHLORIDE 0.9% 50ML 50 ML IV SCH (13:03)
[2020-04-13] MEDS: HEPARIN 25,000 UNIT/D5W 250ML 250 ML IV SCH (13:04)
[2020-04-14] VITALS (25 sets, daily range): BP systolic 95–127; BP diastolic 41–91
[2020-04-14 05:50] LABS: BASOPHILS % 0.3 % (0.0-1.0); EOSINOPHILS # (AUTO) 0.1 (0.0-0.4); EOSINOPHILS % 0.5 % (0.0-6.0); LYMPHOCYTES # (AUTO) 0.8 (1.0-3.2); LYMPHOCYTES % 5.6 % (18.0-39.1); MEAN CORPUSCULAR HEMOGLOBIN 30.1 pg (28-32); MEAN CORPUSCULAR HGB CONC 29.1 g/dL (31-35); MEAN CORPUSCULAR VOLUME 103.2 fL (81-99); MONOCYTES # (AUTO) 0.6 (0.2-0.8); MONOCYTES % 4.4 % (4.4-11.3); NEUTROPHILS # (AUTO) 11.2 (2.1-6.9); NEUTROPHILS % 84.5 % (38.7-80.0); PLATELET COUNT 224 x10e3/uL (140-360); RED BLOOD COUNT 2.16 x10e6/uL (3.6-5.1); RED CELL DISTRIBUTION WIDTH 18.3 % (11.7-14.4)
[2020-04-14 05:53] LABS: HEMATOCRIT 22.3 % (34.2-44.1); HEMOGLOBIN 6.5 g/dL (12.0-16.0)
[2020-04-14] MEDS: METOCLOPRAMIDE HCL 10 MG/2ML VIAL IV SCH ×5 (05:59→23:19)
[2020-04-14 06:12] LABS: ANION GAP 18.1 mmol/L (8-16); CREATININE, SERUM 2.04 mg/dL (0.57-1.11); MAGNESIUM 2.1 MG/DL (1.3-2.1)
[2020-04-14 06:23] LABS: POTASSIUM 6.1 mmol/L (3.5-5.1)
[2020-04-14] MEDS ORDERED: SODIUM CHLORIDE 0.9% 250ML 250 ML IV ONE (07:30)
[2020-04-14] MEDS ORDERED: DEXTROSE 50% SYRINGE 50 ML IV ONE (07:35)
[2020-04-14] MEDS ORDERED: INSULIN REGULAR, HUMAN 100 UNIT/1 ML 3ML VIAL IV ONE (07:35)
[2020-04-14] MEDS: MIDAZOLAM HCL 5MG/ML 10ML VIAL 100 ML IV PRN (08:10)
[2020-04-14] MEDS: FENTANYL 2000MCG/NS 250 250 ML IV SCH (08:45)
[2020-04-14] MEDS: GENTAMICIN SULFATE 0.3% OPTH OINT 3.5GM TUBE OP SCH ×5 (08:49→21:09)
[2020-04-14] MEDS: BALSAM PERU/CASTOR OIL 60 GM OINT...G. TP SCH (08:49)
[2020-04-14] MEDS: CITRIC ACID/SODIUM CITRATE 30 ML UDC PO SCH ×2 (08:49→17:05)
[2020-04-14] MEDS ORDERED: SODIUM CHLORIDE 0.9% 250ML 750 ML IV PRN (11:00)
[2020-04-14] MEDS: HEPARIN 25,000 UNIT/D5W 250ML 250 ML IV SCH (14:00)
[2020-04-14] MEDS: ROCURONIUM BROMIDE 1,250 MG in SODIUM CHLORIDE 0.9% 250ML 125 ML IV SCH (17:53)
[2020-04-15] VITALS (26 sets, daily range): BP systolic 93–116; BP diastolic 39–62
[2020-04-15] MEDS: FENTANYL 2000MCG/NS 250 250 ML IV SCH ×2 (00:19→21:23)
[2020-04-15] MEDS: MIDAZOLAM HCL 5MG/ML 10ML VIAL 100 ML IV PRN ×2 (00:20→22:21)
[2020-04-15] MEDS: METOCLOPRAMIDE HCL 10 MG/2ML VIAL IV SCH ×4 (06:09→23:27)
[2020-04-15 06:25] LABS: BASOPHILS # (AUTO) 0.1 (0.0-0.1); BASOPHILS % 0.5 % (0.0-1.0); EOSINOPHILS # (AUTO) 0.1 (0.0-0.4); EOSINOPHILS % 0.6 % (0.0-6.0); HEMATOCRIT 23.7 % (34.2-44.1); HEMOGLOBIN 7.1 g/dL (12.0-16.0); LYMPHOCYTES % 9.5 % (18.0-39.1); MEAN CORPUSCULAR HEMOGLOBIN 31.1 pg (28-32); MEAN CORPUSCULAR VOLUME 103.9 fL (81-99); MONOCYTES # (AUTO) 0.5 (0.2-0.8); MONOCYTES % 4.5 % (4.4-11.3); NEUTROPHILS # (AUTO) 8.6 (2.1-6.9); NEUTROPHILS % 78.4 % (38.7-80.0); PLATELET COUNT 207 x10e3/uL (140-360); RED BLOOD COUNT 2.28 x10e6/uL (3.6-5.1); RED CELL DISTRIBUTION WIDTH 17.9 % (11.7-14.4)
[2020-04-15 06:40] LABS: INR 1.17; PROTHROMBIN TIME 15.7 seconds (11.9-14.5)
[2020-04-15 06:41] LABS: PARTIAL THROMBOPLASTIN TIME 45.7 seconds (23.8-35.5)
[2020-04-15 06:52] LABS: ANION GAP 16.7 mmol/L (8-16); CALCIUM 7.9 mg/dL (8.4-10.2); CREATININE, SERUM 1.47 mg/dL (0.57-1.11); POTASSIUM 4.7 mmol/L (3.5-5.1)
[2020-04-15] MEDS: CITRIC ACID/SODIUM CITRATE 30 ML UDC PO SCH ×2 (08:42→17:00)
[2020-04-15] MEDS: GENTAMICIN SULFATE 0.3% OPTH OINT 3.5GM TUBE OP SCH ×4 (08:42→20:25)
[2020-04-15] MEDS: BALSAM PERU/CASTOR OIL 60 GM OINT...G. TP SCH (08:43)
[2020-04-15 09:25] LABS: BAND NEUTROPHILS % (MANUAL) 3 %; EOSINOPHILS % (MANUAL) 1 % (0-7); LYMPHOCYTES % (MANUAL) 7 % (19-48); MYELOCYTES % (MANUAL) 3 % (0-0); NUCLEATED RED BLOOD CELLS 8
[2020-04-15 09:27] LABS: PLATELET ESTIMATE ADEQUATE; PLATELET MORPHOLOGY COMMENT RARE EDTA CLUMPING
[2020-04-15 09:28] LABS: ANISOCYTOSIS SLIGHT; RBC MORPHOLOGY COMMENT ABNORMAL
[2020-04-15 09:29] LABS: MONOCYTES % (MANUAL) 2 % (3.4-9.0); NEUTROPHILS % (MANUAL) 84 % (40-74)
[2020-04-15] MEDS: ROCURONIUM BROMIDE 1,250 MG in SODIUM CHLORIDE 0.9% 250ML 125 ML IV SCH ×2 (12:15→20:30)
[2020-04-15] MEDS: HEPARIN 25,000 UNIT/D5W 250ML 250 ML IV SCH (14:00)
[2020-04-16] VITALS (25 sets, daily range): BP systolic 95–119; BP diastolic 48–65
[2020-04-16] MEDS: MIDAZOLAM HCL 5MG/ML 10ML VIAL 100 ML IV PRN ×3 (03:11→18:31)
[2020-04-16] MEDS: FENTANYL 2000MCG/NS 250 250 ML IV SCH ×3 (05:05→18:30)
[2020-04-16] MEDS: METOCLOPRAMIDE HCL 10 MG/2ML VIAL IV SCH ×3 (06:22→17:02)
[2020-04-16] MEDS: GENTAMICIN SULFATE 0.3% OPTH OINT 3.5GM TUBE OP SCH ×4 (08:54→19:34)
[2020-04-16] MEDS: CITRIC ACID/SODIUM CITRATE 30 ML UDC PO SCH ×2 (08:55→17:02)
[2020-04-16] MEDS: BALSAM PERU/CASTOR OIL 60 GM OINT...G. TP SCH (08:55)
[2020-04-16] MEDS ORDERED: FENTANYL 2,000 MCG/250 ML BAG ONE (12:05)
[2020-04-16] MEDS ORDERED: MIDAZOLAM HCL 5MG/ML 10ML VIAL 100 ML BAG IV ONE (12:05)
[2020-04-16] MEDS: HEPARIN 25,000 UNIT/D5W 250ML 250 ML IV SCH (14:20)
[2020-04-16] MEDS: PROPOFOL IV EMULSION 10MG/ML 100 ML IV PRN (21:00)
[2020-04-16] MEDS: NOREPINEPHRINE INJ 4MG/4ML 8 MG in DEXTROSE 5% 250ML 250 ML IV PRN (23:30)
[2020-04-17] VITALS (20 sets, daily range): BP systolic 100–136; BP diastolic 51–67
[2020-04-17] MEDS: METOCLOPRAMIDE HCL 10 MG/2ML VIAL IV SCH ×4 (00:36→16:55)
[2020-04-17] MEDS: FENTANYL 2000MCG/NS 250 250 ML IV SCH (01:30)
[2020-04-17] MEDS: PROPOFOL IV EMULSION 10MG/ML 100 ML IV PRN (04:50)
[2020-04-17 06:36] LABS: BASOPHILS # (AUTO) 0.1 (0.0-0.1); BASOPHILS % 0.5 % (0.0-1.0); EOSINOPHILS # (AUTO) 0.1 (0.0-0.4); EOSINOPHILS % 1.1 % (0.0-6.0); LYMPHOCYTES # (AUTO) 1.1 (1.0-3.2); LYMPHOCYTES % 8.4 % (18.0-39.1); MEAN CORPUSCULAR HEMOGLOBIN 29.7 pg (28-32); MEAN CORPUSCULAR HGB CONC 30.3 g/dL (31-35); MEAN CORPUSCULAR VOLUME 98.2 fL (81-99); MONOCYTES # (AUTO) 0.5 (0.2-0.8); MONOCYTES % 3.5 % (4.4-11.3); NEUTROPHILS # (AUTO) 9.7 (2.1-6.9); NEUTROPHILS % 75.9 % (38.7-80.0); PLATELET COUNT 252 x10e3/uL (140-360); RED BLOOD COUNT 2.22 x10e6/uL (3.6-5.1); RED CELL DISTRIBUTION WIDTH 17.7 % (11.7-14.4)
[2020-04-17 06:40] LABS: ALBUMIN 1.3 g/dL (3.5-5.0); ALBUMIN/GLOBULIN RATIO 0.3 (0.8-2.0); ANION GAP 22.3 mmol/L (8-16); CALCIUM 7.9 mg/dL (8.4-10.2); CREATININE, SERUM 1.95 mg/dL (0.57-1.11); POTASSIUM 5.3 mmol/L (3.5-5.1)
[2020-04-17 06:41] LABS: HEMATOCRIT 21.8 % (34.2-44.1); HEMOGLOBIN 6.6 g/dL (12.0-16.0)
[2020-04-17] MEDS: CITRIC ACID/SODIUM CITRATE 30 ML UDC PO SCH ×2 (07:27→16:55)
[2020-04-17] MEDS: GENTAMICIN SULFATE 0.3% OPTH OINT 3.5GM TUBE OP SCH (07:36)
[2020-04-17 11:11] LABS: ANISOCYTOSIS SLIGHT; BAND NEUTROPHILS % (MANUAL) 3 %; EOSINOPHILS % (MANUAL) 2 % (0-7); LYMPHOCYTES % (MANUAL) 7 % (19-48); MONOCYTES % (MANUAL) 1 % (3.4-9.0); MYELOCYTES % (MANUAL) 4 % (0-0); NEUTROPHILS % (MANUAL) 82 % (40-74); PLATELET ESTIMATE ADEQUATE; POLYCHROMASIA FEW
[2020-04-17 11:12] LABS: PLATELET MORPHOLOGY COMMENT NORMAL; RBC MORPHOLOGY COMMENT ABNORMAL
== END 2020-04-18 00:34 | disposition expired | DRG 207 ==
LOC: ER 00:45 → ERHOLD 02:42 → IMCU 04:41 → ICU 03-13 03:35 → COVIDICU 03-25 23:01 → IMCU 04-17 19:10
PROVIDERS: ADMIT Internal Medicine; ATTEND Internal Medicine
PROC: 5A1955Z Respiratory Ventilation, Greater than 96 Consecutive Hours (ICD-10-PCS; principal; 2020-02-28)
PROC: 0BH18EZ Insertion of Endotracheal Airway into Trachea, Via Natural or Artificial Opening Endoscopic (ICD-10-PCS; 2020-02-28)
PROC: XW033E5 Introduction of Remdesivir Anti-infective into Peripheral Vein, Percutaneous Approach, New Technology Group 5 (ICD-10-PCS; 2020-02-28)
PROC: 8E0ZXY6 Isolation (ICD-10-PCS; 2020-02-28)
PROC: 02HV33Z Insertion of Infusion Device into Superior Vena Cava, Percutaneous Approach (ICD-10-PCS; 2020-02-29)
PROC: 5A1D70Z Performance of Urinary Filtration, Intermittent, Less than 6 Hours Per Day (ICD-10-PCS; 2020-03-25)
PROC: 30243N1 Transfusion of Nonautologous Red Blood Cells into Central Vein, Percutaneous Approach (ICD-10-PCS; 2020-03-27)
PROC: 02HV33Z Insertion of Infusion Device into Superior Vena Cava, Percutaneous Approach (ICD-10-PCS; 2020-03-29)
PROC: 05HY33Z Insertion of Infusion Device into Upper Vein, Percutaneous Approach (ICD-10-PCS; 2020-04-04)
DX: U07.1 COVID-19 (principal); J12.82 Pneumonia due to coronavirus disease 2019; J80 Acute respiratory distress syndrome; A41.9 Sepsis, unspecified organism; J96.01 Acute respiratory failure with hypoxia; N17.0 Acute kidney failure with tubular necrosis; J15.9 Unspecified bacterial pneumonia; R65.21 Severe sepsis with septic shock; N17.9 Acute kidney failure, unspecified; Z68.42 Body mass index [BMI] 45.0-49.9, adult; J44.0 Chronic obstructive pulmonary disease with (acute) lower respiratory infection; G93.40 Encephalopathy, unspecified; E66.01 Morbid (severe) obesity due to excess calories; Z66 Do not resuscitate; I45.5 Other specified heart block; F41.9 Anxiety disorder, unspecified; I46.9 Cardiac arrest, cause unspecified; Z51.5 Encounter for palliative care; E87.70 Fluid overload, unspecified; E87.5 Hyperkalemia; Z87.891 Personal history of nicotine dependence; E83.51 Hypocalcemia; I12.9 Hypertensive chronic kidney disease with stage 1 through stage 4 chronic kidney disease, or unspecified chronic kidney disease; N18.9 Chronic kidney disease, unspecified
CPT/HCPCS: 31500; 36415; 36569; 36600; 70450; 71045; 74018; 76604; 80048; 80053; 80202; 82550; 82553; 82805; 82948; 83605; 83735; 83880; 84100; 84484; 85014; 85018; 85025; 85610; 85730; 86704; 86705; 86706; 86850; 86900; 86920; 87040; 87070; 87205; 87340; 90962; 93005; 93306; 94002; 94003; 94660; 96361; 99251; 99284; J0330; J0360; J0456; J0610; J0692; J0696; J1100; J1450; J1644; J1650; J1817; J1940; J2250; J2543; J2765; J2920; J3370; J7030; J7040; J7050; J7799; P9016; U0002